=== PATIENT | male | born 1965 | race Caucasian/White ===

== ENCOUNTER 2023-01-31 23:41 | Emergency (ER) | payer SELFPAY ==
[2023-02-01] MEDS ORDERED: Lidocaine Viscous Sol 2% 15 ml UD Cup ONE (00:14)
[2023-02-01] MEDS ORDERED: Mag-Al 1200 mg/1200 mg/30 ML UDCUP ONE (00:14)
[2023-02-01] MEDS ORDERED: Ondansetron PF 4 MG/2 ML Vial ONE (01:11)
[2023-02-01 01:58] LABS: #Eosinphils 0.1 thou/uL (0.0-0.7); #Lymphocytes 1.3 thou/uL (1.20-3.40); #Monocytes 0.9 thou/uL (0.11-0.59); #Neutrophils 11.6 thou/uL (1.40-6.50); %Basophils 0.2 % (0.0-1.0); %Eosinophils 0.9 % (0.0-10.0); %Lymphocytes 9.4 % (21.0-51.0); %Monocytes 6.2 % (0.0-10.0); %Neutrophils 83.3 % (42.0-75.0); Hemoglobin 17.5 g/dL (14.0-18.0); Mean Corpuscular HGB CONC 34.1 g/dL (32.0-36.0); Mean Corpuscular Hemoglobin 30.8 pg (27.0-31.0); Mean Corpuscular Volume 90.1 fl (78.0-98.0); Platelet Count 78 10x3/uL (130-400); Platelet Morphology Comment Appears Decreased; RBC Distribution Width 13.3 % (11.5-14.5); RBC Morphology Normal; Red Blood Cell (RBC) Count 5.69 mill/uL (4.70-6.10); White Blood Cell (WBC) Count 13.9 10x3/uL (4.8-10.8)
[2023-02-01 03:07] LABS: ALT (SGPT) 27 U/L (8-55); AST (SGOT) 21 U/L (5-34); Albumin 3.7 g/dL (3.5-5.0); Alkaline Phosphatase 70 U/L (40-110); Anion Gap 13 mmol/L (10-20); BUN (Urea Nitrogen) 20 mg/dL (8.4-25.7); Bilirubin, Total 1.4 mg/dL (0.2-1.2); Calc. Creatinine Clearance 0 mL/min (70-130); Calcium 8.9 mg/dL (7.8-10.44); Carbon Dioxide 21 mmol/L (22-29); Chloride 104 mmol/L (98-107); Estimated GFR 79; Globulin 2.3 g/dL (2.4-3.5); Glucose 185 mg/dL (70-105); Lipase 4 U/L (8-78); Potassium 4.2 mmol/L (3.5-5.1); Sodium 134 mmol/L (136-145)
== END 2023-02-01 04:16 | disposition home or self-care (01) ==
LOC: ERS 23:41
DX: K80.20 Calculus of gallbladder without cholecystitis without obstruction (principal); E11.9 Type 2 diabetes mellitus without complications; I11.0 Hypertensive heart disease with heart failure; I50.9 Heart failure, unspecified; J43.9 Emphysema, unspecified
CPT/HCPCS: 36415; 71045; 76705; 80053; 83690; 83880; 84484; 85025; 93005; 96361; 96374; J2405

== ENCOUNTER 2023-05-24 03:05 | Inpatient (IN) | payer OTHER, SELFPAY ==
[2023-05-24 04:11] LABS: #Eosinphils 0.3 thou/uL (0.0-0.7); #Monocytes 0.8 thou/uL (0.11-0.59); #Neutrophils 9.5 thou/uL (1.40-6.50); %Basophils 0.3 % (0.0-1.0); %Eosinophils 2.6 % (0.0-10.0); %Lymphocytes 13.3 % (21.0-51.0); %Monocytes 6.2 % (0.0-10.0); %Neutrophils 77.3 % (42.0-75.0); Hematocrit 42.4 % (42.0-52.0); Hemoglobin 14.3 g/dL (14.0-18.0); Mean Corpuscular HGB CONC 33.7 g/dL (32.0-36.0); Mean Corpuscular Hemoglobin 30.9 pg (27.0-31.0); Mean Corpuscular Volume 91.6 fl (78.0-98.0); Mean Platelet Volume 11.7 fL (7.4-10.4); Platelet Count 142 10x3/uL (130-400); RBC Distribution Width 13.9 % (11.5-14.5); Red Blood Cell (RBC) Count 4.63 mill/uL (4.70-6.10); White Blood Cell (WBC) Count 12.3 10x3/uL (4.8-10.8)
[2023-05-24 04:36] LABS: ALT (SGPT) 14 U/L (8-55); AST (SGOT) 20 U/L (5-34); Albumin 3.7 g/dL (3.5-5.0); Alkaline Phosphatase 68 U/L (40-110); Anion Gap 15 mmol/L (10-20); BUN (Urea Nitrogen) 18 mg/dL (8.4-25.7); Bilirubin, Total 1.8 mg/dL (0.2-1.2); Calc. Creatinine Clearance 0 mL/min (70-130); Calcium 8.8 mg/dL (7.8-10.44); Carbon Dioxide 22 mmol/L (22-29); Chloride 96 mmol/L (98-107); Estimated GFR 75; Globulin 3.1 g/dL (2.4-3.5); Glucose 235 mg/dL (70-105); Lipase Less than 4 U/L (8-78); Potassium 2.9 mmol/L (3.5-5.1); Protein, Total 6.8 g/dL (6.0-8.3); Sodium 130 mmol/L (136-145)
[2023-05-24 04:38] LABS: Troponin I 0.037 ng/mL (< 0.028)
[2023-05-24] MEDS ORDERED: Furosemide 40 MG/4 ML VIAL ONE (04:52)
[2023-05-24] MEDS ORDERED: Pot Chloride/Pot Bicarb/Cit Ac 25 mEq Effervescent Tablet ONE (04:52)
[2023-05-24] MEDS ORDERED: Potassium Chloride 20 MEQ TAB ONE (05:19)
[2023-05-24] MEDS ORDERED: fentaNYL 50 mcg/mL 1 mL Vial ONE (06:48)
[2023-05-24 07:41] LABS: Troponin I 0.038 ng/mL (< 0.028)
[2023-05-24] MEDS ORDERED: Guaifenesin DM 100-10/5 ML UDCUP PO PRN (07:45)
[2023-05-24] MEDS ORDERED: Acetaminophen 325 MG TAB PO PRN (07:45)
[2023-05-24] MEDS ORDERED: Morphine 4 MG/ML VIAL SLOW IVP PRN (07:53)
[2023-05-24] MEDS ORDERED: Glucagon 1 MG/ML KIT IM PRN (07:55)
[2023-05-24] MEDS ORDERED: Dextrose 50% Abboject 50 ML SYRINGE SLOW IVP PRN (07:55)
[2023-05-24] MEDS ORDERED: Dextrose 5% in Water 1,000 ML IV PRN (07:55)
[2023-05-24] MEDS ORDERED: HumaLOG 300 UNITS/3 ML VIAL SC PRN (07:55)
[2023-05-24] MEDS ORDERED: Famotidine/PF 20 mg/2ml Vial SLOW IVP SCH (08:15)
[2023-05-24] MEDS ORDERED: diphenhydrAMINE 50 MG/ML VIAL IVP SCH (08:15)
[2023-05-24] MEDS ORDERED: methylPREDNISolone Sod Succ 40 MG VIAL IVP SCH (08:15)
[2023-05-24] MEDS ORDERED: Iopamidol-370 76% 500 ML MDV (1 ML CHARGE) ONE (09:34)
[2023-05-24] MEDS: Famotidine 20 MG TAB PO SCH ×2 (09:52→20:16)
[2023-05-24 10:12] VITALS: BMI 32.3
[2023-05-24] MEDS: Ipratropium/Albuterol 3 ML NEB NEB SCH ×3 (11:00→19:31)
[2023-05-24] MEDS ORDERED: Potassium Chloride 20 MEQ TAB PO SCH (12:00)
[2023-05-24 12:32] LABS: Legionella Urinary Ag Negative (Negative); Strep pneumo Urine Ag NEGATIVE (NEGATIVE)
[2023-05-24 12:51] LABS: Magnesium 1.3 mg/dL (1.6-2.6)
[2023-05-24 13:43] LABS: Troponin I 0.027 ng/mL (< 0.028)
[2023-05-24] MEDS ORDERED: Magnesium Sulfate 4 GM in Sodium Chloride 0.9% 250 ML 250 ML IVPB SCH (14:15)
[2023-05-24] MEDS ORDERED: Magnesium Sulfate In Water 4 GM in Premix Bag 1 BAG IVPB SCH (14:15)
[2023-05-24] MEDS: Furosemide 40 MG/4 ML VIAL SLOW IVP SCH (14:41)
[2023-05-24] MEDS: HYDROcodone/Acetaminophen 5/325 mg Tablet PO PRN ×2 (14:41→20:15)
[2023-05-24] MEDS: Carvedilol 3.125 MG TAB PO SCH (17:14)
[2023-05-24] MEDS: Potassium Chloride 20 MEQ TAB PO SCH (17:14)
[2023-05-25] MEDS: Furosemide 40 MG/4 ML VIAL SLOW IVP SCH ×2 (05:24→13:32)
[2023-05-25] MEDS: Ketorolac Tromethamine 30 MG/ML VIAL IVP PRN ×2 (05:27→16:04)
[2023-05-25 05:47] LABS: #Eosinphils 0.1 thou/uL (0.0-0.7); #Monocytes 1.2 thou/uL (0.11-0.59); #Neutrophils 12.9 thou/uL (1.40-6.50); %Basophils 0.2 % (0.0-1.0); %Eosinophils 0.3 % (0.0-10.0); %Lymphocytes 9.9 % (21.0-51.0); %Monocytes 7.3 % (0.0-10.0); %Neutrophils 81.8 % (42.0-75.0); Hematocrit 44.4 % (42.0-52.0); Hemoglobin 14.5 g/dL (14.0-18.0); Mean Corpuscular HGB CONC 32.7 g/dL (32.0-36.0); Mean Corpuscular Hemoglobin 30.7 pg (27.0-31.0); Mean Corpuscular Volume 93.9 fl (78.0-98.0); Mean Platelet Volume 12.8 fL (7.4-10.4); Platelet Count 153 10x3/uL (130-400); Red Blood Cell (RBC) Count 4.73 mill/uL (4.70-6.10); White Blood Cell (WBC) Count 15.7 10x3/uL (4.8-10.8)
[2023-05-25 07:12] LABS: ALT (SGPT) 15 U/L (8-55); AST (SGOT) 22 U/L (5-34); Alkaline Phosphatase 77 U/L (40-110); BUN (Urea Nitrogen) 26 mg/dL (8.4-25.7); Bilirubin, Total 2.6 mg/dL (0.2-1.2); Calc. Creatinine Clearance 92 mL/min (70-130); Calcium 9.1 mg/dL (7.8-10.44); Chloride 97 mmol/L (98-107); Estimated GFR 63; Potassium 3.8 mmol/L (3.5-5.1); Sodium 130 mmol/L (136-145)
[2023-05-25] MEDS: Ipratropium/Albuterol 3 ML NEB NEB SCH ×4 (07:27→19:20)
[2023-05-25] MEDS: Carvedilol 3.125 MG TAB PO SCH ×2 (07:54→16:05)
[2023-05-25] MEDS: Famotidine 20 MG TAB PO SCH ×2 (07:54→19:46)
[2023-05-25] MEDS: Nicotine 21 MG PATCH TD SCH (07:54)
[2023-05-25] MEDS: Potassium Chloride 20 MEQ TAB PO SCH ×2 (07:55→16:05)
[2023-05-25 08:33] LABS: Glucose 216 mg/dL (70-105)
[2023-05-25 08:34] LABS: Globulin 3.5 g/dL (2.4-3.5); Protein, Total 7.5 g/dL (6.0-8.3)
[2023-05-25 08:35] LABS: Anion Gap 24 mmol/L (10-20); Carbon Dioxide 14 mmol/L (22-29)
[2023-05-25] MEDS: HYDROcodone/Acetaminophen 5/325 mg Tablet PO PRN (19:45)
[2023-05-26] MEDS: Ketorolac Tromethamine 30 MG/ML VIAL IVP PRN (00:20)
[2023-05-26] MEDS: HYDROcodone/Acetaminophen 5/325 mg Tablet PO PRN ×5 (03:33→22:14)
[2023-05-26] MEDS: Furosemide 40 MG/4 ML VIAL SLOW IVP SCH ×2 (05:48→13:20)
[2023-05-26] MEDS: Ipratropium/Albuterol 3 ML NEB NEB SCH ×2 (07:19→10:47)
[2023-05-26] MEDS: Nicotine 21 MG PATCH TD SCH (08:35)
[2023-05-26] MEDS: Potassium Chloride 20 MEQ TAB PO SCH ×2 (08:35→16:51)
[2023-05-26] MEDS: Carvedilol 3.125 MG TAB PO SCH ×2 (08:35→16:51)
[2023-05-26] MEDS: Famotidine 20 MG TAB PO SCH ×2 (08:35→20:45)
[2023-05-26] MEDS ORDERED: Ipratropium/Albuterol 3 ML NEB NEB PRN (13:22)
[2023-05-26] MEDS ORDERED: Communication Order-Pharmacy FS SCH ×2 (18:00→19:30)
[2023-05-27] MEDS: HYDROcodone/Acetaminophen 5/325 mg Tablet PO PRN (02:03)
[2023-05-27 04:55] LABS: #Basophils 0.1 thou/uL (0.0-0.2); #Eosinphils 0.3 thou/uL (0.0-0.7); #Monocytes 0.7 thou/uL (0.11-0.59); #Neutrophils 8.1 thou/uL (1.40-6.50); %Basophils 0.5 % (0.0-1.0); %Lymphocytes 11.9 % (21.0-51.0); %Monocytes 7.1 % (0.0-10.0); Hematocrit 40.2 % (42.0-52.0); Hemoglobin 13.6 g/dL (14.0-18.0); Mean Corpuscular HGB CONC 33.8 g/dL (32.0-36.0); Mean Corpuscular Hemoglobin 30.5 pg (27.0-31.0); Mean Corpuscular Volume 90.1 fl (78.0-98.0); Mean Platelet Volume 12.6 fL (7.4-10.4); Platelet Count 152 10x3/uL (130-400); RBC Distribution Width 13.6 % (11.5-14.5); Red Blood Cell (RBC) Count 4.46 mill/uL (4.70-6.10); White Blood Cell (WBC) Count 10.5 10x3/uL (4.8-10.8)
[2023-05-27 05:04] LABS: Hemoglobin A1c 6.9 % (4.0-6.0)
[2023-05-27 05:19] LABS: Anion Gap 15 mmol/L (10-20); BUN (Urea Nitrogen) 46 mg/dL (8.4-25.7); Calc. Creatinine Clearance 75 mL/min (70-130); Calcium 9.1 mg/dL (7.8-10.44); Carbon Dioxide 20 mmol/L (22-29); Cardiac Risk 3.5 (Less than 4.5); Chloride 100 mmol/L (98-107); Cholesterol 102 mg/dl (< 200 Desired); Estimated GFR 48; Glucose 139 mg/dL (70-105); HDL Cholesterol 29 mg/dL (>60 Neg Risk); LDL Cholesterol, Calculated 63 mg/dL; Potassium 4.3 mmol/L (3.5-5.1); Sodium 131 mmol/L (136-145); Triglycerides 50 mg/dL (Less than 150)
[2023-05-27] MEDS ORDERED: Ondansetron PF 4 MG/2 ML Vial IVP PRN (05:21)
[2023-05-27] MEDS ORDERED: Ondansetron PF 4 MG/2 ML Vial IVP SCH (05:30)
[2023-05-27] MEDS: Famotidine 20 MG TAB PO SCH (06:03)
[2023-05-27] MEDS: Furosemide 40 MG/4 ML VIAL SLOW IVP SCH (06:04)
[2023-05-27] MEDS: Potassium Chloride 20 MEQ TAB PO SCH (06:04)
[2023-05-27] MEDS: Carvedilol 3.125 MG TAB PO SCH ×2 (06:04→16:35)
[2023-05-27 06:36] LABS: SARS-CoV-2 NAA Rapid Test Not Detected (NotDetected)
[2023-05-27] MEDS ORDERED: methylPREDNISolone Sod Succ/PF 125 MG/2 ML VIAL IVP PRN (08:00)
[2023-05-27] MEDS ORDERED: Promethazine 25 MG TAB PO SCH (08:00)
[2023-05-27] MEDS ORDERED: Famotidine/PF 20 mg/2ml Vial SLOW IVP SCH ×2 (08:00→13:00)
[2023-05-27] MEDS ORDERED: diphenhydrAMINE 50 MG CAP PO SCH ×2 (08:00→13:00)
[2023-05-27] MEDS ORDERED: Sodium Chloride 0.9% 1,000 ML IV SCH (08:45)
[2023-05-27] MEDS ORDERED: Sodium Chloride 0.9% 500 ML IV SCH (08:45)
[2023-05-27] MEDS ORDERED: Midazolam HCl 2 mg/2 ml Vial ONE (11:59)
[2023-05-27] MEDS ORDERED: Lidocaine 1% (PF) 30 ML VIAL ONE (12:00)
[2023-05-27] MEDS ORDERED: Heparin 10,000 UNITS/ 10 ML VIAL ONE (12:00)
[2023-05-27] MEDS ORDERED: fentaNYL 50 mcg/mL 1 mL Vial ONE (12:00)
[2023-05-27 13:41] LABS: Bilirubin Negative (Negative); Blood, Urine Trace (Negative); Clarity Clear (Clear); Glucose, Urine (Dipstick) Normal (Negative); Ketone, Urine Trace mg/dL (Negative); Leukocyte Negative Leu/uL (Negative); Nitrite Negative (Negative); Protein, Urine (Dipstick) 50 mg/dL (Neg-Trace); RBC/HPF 0-3 HPF (0-3); Specific Gravity, Urine 1.024 (1.002-1.036); Squamous Epithelial None Seen HPF (0-3); Urobilinogen 3 mg/dL (Less than 2); WBC/HPF 0-3 HPF (0-3); pH, Urine 5.5 (5.0-9.0)
[2023-05-27 13:59] LABS: Bacteria/HPF None Seen HPF (None Seen)
[2023-05-27] MEDS ORDERED: hydrALAZINE 20 MG/ML VIAL ONE (14:11)
[2023-05-27] MEDS ORDERED: Sodium Chloride 0.9% 200 ML IV PRN (15:30)
[2023-05-27] MEDS ORDERED: Nitroglycerin 0.4 MG TAB (25 Tab Bottle) SL PRN (15:30)
[2023-05-27] MEDS ORDERED: Acetaminophen/Codeine 30-300mg Tablet PO PRN ×2 (15:30)
[2023-05-27 16:03] VITALS: BP 164/91; TEMP 98
[2023-05-27] MEDS ORDERED: Lorazepam 2 MG/ML VIAL SLOW IVP PRN (16:22)
[2023-05-27] MEDS: Nicotine 21 MG PATCH TD SCH (16:35)
== END 2023-05-27 18:20 | disposition left against medical advice (07) | DRG 280 ==
LOC: ERS 03:05 → 2SW 07:50 → OBSVTOIN 07:50 → 2SW 14:24
PROVIDERS: ADMIT Hospitalist; ATTEND Family Medicine
PROC: 4A023N7 Measurement of Cardiac Sampling and Pressure, Left Heart, Percutaneous Approach (ICD-10-PCS; principal; 2023-05-27)
PROC: B2111ZZ Fluoroscopy of Multiple Coronary Arteries using Low Osmolar Contrast (ICD-10-PCS; 2023-05-27)
PROC: B2151ZZ Fluoroscopy of Left Heart using Low Osmolar Contrast (ICD-10-PCS; 2023-05-27)
DX: I50.43 Acute on chronic combined systolic (congestive) and diastolic (congestive) heart failure (principal); J96.01 Acute respiratory failure with hypoxia; I21.A1 Myocardial infarction type 2; E87.1 Hypo-osmolality and hyponatremia; N17.9 Acute kidney failure, unspecified; I42.9 Cardiomyopathy, unspecified; Q24.0 Dextrocardia; E87.6 Hypokalemia; E11.65 Type 2 diabetes mellitus with hyperglycemia; F17.210 Nicotine dependence, cigarettes, uncomplicated; J43.9 Emphysema, unspecified; N18.9 Chronic kidney disease, unspecified; D72.829 Elevated white blood cell count, unspecified; I25.10 Atherosclerotic heart disease of native coronary artery without angina pectoris; K80.20 Calculus of gallbladder without cholecystitis without obstruction; I08.1 Rheumatic disorders of both mitral and tricuspid valves; Z20.822 Contact with and (suspected) exposure to COVID-19; I10 Essential (primary) hypertension; Z88.8 Allergy status to other drugs, medicaments and biological substances
CPT/HCPCS: 36415; 36416; 71045; 71275; 76705; 76770; 80048; 80053; 80061; 81001; 83036; 83690; 83735; 83880; 84145; 84443; 84484; 85025; 85379; 86140; 87040; 87149; 87449; 87899; 93005; 93306; 93798; 93970; 94640; 94760; 96374; 96375; 97139; C1725; J0360; J1200; J1644; J1650; J1815; J1885; J1940; J2001; J2060; J2250; J2270; J2405; J2920; J2930; J3010; J3475; J7030; J7050; J7620; Q9967; S0028; U0002

== ENCOUNTER 2023-05-28 13:00 | Inpatient (IN) | payer OTHER ==
[~2023-05-28 13:00] MED LIST: Iopamidol 370 76% 100 ML VIAL ONE
[2023-05-28 14:04] LABS: #Monocytes 0.9 thou/uL (0.11-0.59); #Neutrophils 9.5 thou/uL (1.40-6.50); %Basophils 0.1 % (0.0-1.0); %Eosinophils 0.1 % (0.0-10.0); %Lymphocytes 7.1 % (21.0-51.0); %Monocytes 7.9 % (0.0-10.0); %Neutrophils 84.3 % (42.0-75.0); Hematocrit 39.9 % (42.0-52.0); Hemoglobin 12.6 g/dL (14.0-18.0); Mean Corpuscular HGB CONC 31.6 g/dL (32.0-36.0); Mean Corpuscular Hemoglobin 30.4 pg (27.0-31.0); Mean Corpuscular Volume 96.1 fl (78.0-98.0); Platelet Count 131 10x3/uL (130-400); RBC Distribution Width 14.1 % (11.5-14.5); Red Blood Cell (RBC) Count 4.15 mill/uL (4.70-6.10); White Blood Cell (WBC) Count 11.2 10x3/uL (4.8-10.8)
[2023-05-28 14:28] LABS: ALT (SGPT) 380 U/L (8-55); AST (SGOT) 218 U/L (5-34); Albumin 3.9 g/dL (3.5-5.0); Alkaline Phosphatase 77 U/L (40-110); Anion Gap 19 mmol/L (10-20); BUN (Urea Nitrogen) 44 mg/dL (8.4-25.7); Bilirubin, Total 1.5 mg/dL (0.2-1.2); Calc. Creatinine Clearance 0 mL/min (70-130); Calcium 9.7 mg/dL (7.8-10.44); Carbon Dioxide 18 mmol/L (22-29); Chloride 99 mmol/L (98-107); Estimated GFR 48; Globulin 3.6 g/dL (2.4-3.5); Glucose 288 mg/dL (70-105); Potassium 5.5 mmol/L (3.5-5.1); Protein, Total 7.5 g/dL (6.0-8.3); Sodium 130 mmol/L (136-145)
[2023-05-28 14:41] LABS: Troponin I 0.023 ng/mL (< 0.028)
[2023-05-28] MEDS ORDERED: Ondansetron PF 4 MG/2 ML Vial IVP PRN (17:15)
[2023-05-28] MEDS ORDERED: Ondansetron ODT 4 MG TAB SL PRN (17:15)
[2023-05-28] MEDS ORDERED: Acetaminophen 325 MG TAB PO PRN (17:15)
[2023-05-28 17:47] VITALS: BMI 32.6
[2023-05-28] MEDS ORDERED: hydrALAZINE 20 MG/ML VIAL SLOW IVP PRN (17:52)
[2023-05-28] MEDS ORDERED: Metoclopramide HCl 10 MG/2 ML VIAL IVP PRN (17:52)
[2023-05-28] MEDS ORDERED: Ipratropium/Albuterol 3 ML NEB NEB PRN (17:56)
[2023-05-28] MEDS ORDERED: Dextrose 50% Abboject 50 ML SYRINGE SLOW IVP PRN (18:06)
[2023-05-28] MEDS ORDERED: Glucagon 1 MG/ML KIT IM PRN (18:06)
[2023-05-28] MEDS ORDERED: Dextrose 5% in Water 1,000 ML IV PRN (18:06)
[2023-05-28] MEDS ORDERED: LOKELMA 10 GM PACKET PO SCH (18:15)
[2023-05-28] MEDS ORDERED: Furosemide 20 MG/2 ML VIAL SLOW IVP SCH (18:15)
[2023-05-28] MEDS: HumaLOG 300 UNITS/3 ML VIAL SC PRN ×2 (18:56→19:01)
[2023-05-28] MEDS: Nicotine 14 MG PATCH TD SCH (18:56)
[2023-05-28 19:10] LABS: Troponin I 0.027 ng/mL (< 0.028)
[2023-05-28 20:29] LABS: Bacteria/HPF None Seen HPF (None Seen); Bilirubin Negative (Negative); Blood, Urine Negative (Negative); Clarity Clear (Clear); Glucose, Urine (Dipstick) 150 mg/dL (Negative); Ketone, Urine Negative (Negative); Leukocyte Negative Leu/uL (Negative); Nitrite Negative (Negative); Protein, Urine (Dipstick) 30 mg/dL (Neg-Trace); RBC/HPF 0-3 HPF (0-3); Specific Gravity, Urine 1.023 (1.002-1.036); Squamous Epithelial None Seen HPF (0-3); WBC/HPF 0-3 HPF (0-3); pH, Urine 5.5 (5.0-9.0)
[2023-05-28 20:36] LABS: Amphetamine Detected (NotDetected); Barbiturates Screen Not Detected (NotDetected); Benzodiazepine Screen Not Detected (NotDetected); Cocaine Metabolite Screen Not Detected (NotDetected); Methadone Not Detected (NotDetected); Methamphetamine Detected (NotDetected); Opiate Screen Detected (NotDetected); Oxycodone Screen Not Detected (NotDetected); Phencyclidine (PCP) Not Detected (NotDetected); THC/Cannabinoid Screen Not Detected (NotDetected); Tricyclic Screen Not Detected (NotDetected)
[2023-05-28 21:20] LABS: Troponin I 0.049 ng/mL (< 0.028)
[2023-05-28] MEDS ORDERED: Famotidine 20 MG TAB PO SCH (23:45)
[2023-05-29 05:44] LABS: #Eosinphils 0.3 thou/uL (0.0-0.7); #Neutrophils 9.8 thou/uL (1.40-6.50); %Basophils 0.2 % (0.0-1.0); %Eosinophils 2.2 % (0.0-10.0); %Lymphocytes 11.3 % (21.0-51.0); %Monocytes 7.6 % (0.0-10.0); %Neutrophils 77.7 % (42.0-75.0); Hematocrit 40.6 % (42.0-52.0); Hemoglobin 13.3 g/dL (14.0-18.0); Mean Corpuscular HGB CONC 32.8 g/dL (32.0-36.0); Mean Corpuscular Hemoglobin 30.6 pg (27.0-31.0); Mean Corpuscular Volume 93.5 fl (78.0-98.0); Mean Platelet Volume 12.9 fL (7.4-10.4); Platelet Count 188 10x3/uL (130-400); RBC Distribution Width 13.8 % (11.5-14.5); Red Blood Cell (RBC) Count 4.34 mill/uL (4.70-6.10); White Blood Cell (WBC) Count 12.5 10x3/uL (4.8-10.8)
[2023-05-29] MEDS: HumaLOG 300 UNITS/3 ML VIAL SC PRN ×3 (05:51→20:32)
[2023-05-29 06:09] LABS: ALT (SGPT) 302 U/L (8-55); AST (SGOT) 107 U/L (5-34); Albumin 3.7 g/dL (3.5-5.0); Alkaline Phosphatase 88 U/L (40-110); Anion Gap 16 mmol/L (10-20); BUN (Urea Nitrogen) 40 mg/dL (8.4-25.7); Bilirubin, Direct 0.8 mg/dL (0.1-0.3); Bilirubin, Total 1.2 mg/dL (0.2-1.2); Calc. Creatinine Clearance 96 mL/min (70-130); Carbon Dioxide 20 mmol/L (22-29); Chloride 100 mmol/L (98-107); Estimated GFR 64; Glucose 196 mg/dL (70-105); Potassium 3.9 mmol/L (3.5-5.1); Protein, Total 6.9 g/dL (6.0-8.3); Sodium 132 mmol/L (136-145)
[2023-05-29] MEDS: Acetaminophen 325 MG TAB PO PRN (06:35)
[2023-05-29] MEDS: Aspirin Chewable 81 MG TAB PO SCH (09:27)
[2023-05-29] MEDS ORDERED: Lisinopril 5 MG TAB PO SCH (11:15)
[2023-05-29] MEDS ORDERED: Pantoprazole 40 MG VIAL IVP SCH (11:30)
[2023-05-29] MEDS: Loperamide HCl 2 MG CAP PO PRN (14:10)
[2023-05-29] MEDS: Nicotine 14 MG PATCH TD SCH (17:03)
[2023-05-29] MEDS: Carvedilol 3.125 MG TAB PO SCH (17:03)
[2023-05-29] MEDS: Atorvastatin Calcium 40 MG TAB PO SCH (20:30)
[2023-05-29] MEDS: Lisinopril 5 MG TAB PO SCH (20:31)
[2023-05-30] MEDS: Loperamide HCl 2 MG CAP PO PRN ×2 (04:04→08:57)
[2023-05-30] MEDS: Lorazepam 2 MG/ML VIAL SLOW IVP PRN ×2 (06:52→22:52)
[2023-05-30] MEDS: Lisinopril 5 MG TAB PO SCH ×2 (08:57→21:05)
[2023-05-30] MEDS: Aspirin Chewable 81 MG TAB PO SCH (08:57)
[2023-05-30] MEDS: Carvedilol 3.125 MG TAB PO SCH ×2 (08:57→16:39)
[2023-05-30] MEDS ORDERED: Diphenoxylate HCl/Atropine Tablet PO PRN (11:06)
[2023-05-30 12:39] LABS: #Eosinphils 0.2 thou/uL (0.0-0.7); #Monocytes 1.9 thou/uL (0.11-0.59); %Basophils 0.2 % (0.0-1.0); %Eosinophils 0.9 % (0.0-10.0); %Lymphocytes 4.9 % (21.0-51.0); %Monocytes 10.3 % (0.0-10.0); %Neutrophils 82.6 % (42.0-75.0); Hematocrit 41.5 % (42.0-52.0); Hemoglobin 13.7 g/dL (14.0-18.0); Mean Corpuscular Hemoglobin 30.2 pg (27.0-31.0); Mean Corpuscular Volume 91.6 fl (78.0-98.0); Platelet Count 172 10x3/uL (130-400); RBC Distribution Width 14.1 % (11.5-14.5); Red Blood Cell (RBC) Count 4.53 mill/uL (4.70-6.10); White Blood Cell (WBC) Count 18.1 10x3/uL (4.8-10.8)
[2023-05-30 13:24] LABS: ALT (SGPT) 264 U/L (8-55); AST (SGOT) 146 U/L (5-34); Albumin 3.4 g/dL (3.5-5.0); Alkaline Phosphatase 72 U/L (40-110); Anion Gap 12 mmol/L (10-20); BUN (Urea Nitrogen) 24 mg/dL (8.4-25.7); Bilirubin, Total 1.9 mg/dL (0.2-1.2); Calc. Creatinine Clearance 105 mL/min (70-130); Calcium 8.6 mg/dL (7.8-10.44); Carbon Dioxide 18 mmol/L (22-29); Chloride 103 mmol/L (98-107); Estimated GFR 70; Globulin 2.8 g/dL (2.4-3.5); Glucose 165 mg/dL (70-105); Protein, Total 6.2 g/dL (6.0-8.3); Sodium 129 mmol/L (136-145)
[2023-05-30] MEDS ORDERED: Ondansetron PF 4 MG/2 ML Vial IVP PRN (13:32)
[2023-05-30] MEDS ORDERED: Piperacillin/Tazobactam 3.375 GM in Sodium Chloride 0.9% 100 ML IVPB SCH (15:00)
[2023-05-30 16:09] LABS: HBCM Index 0.05 S/CO (0-0.79); HIV (1/2) Antibody/Antigen Non-Reactive (NonReactive); Hep A IgM AB Non-Reactive S/CO (NonReactive); Hep A IgM S/CO 0.19 S/CO (0-0.79); Hep B Surf Ag Non-Reactive S/CO (NonReactive); Hepatitis B Core IgM Abs Non-Reactive S/CO (NonReactive)
[2023-05-30] MEDS: Nicotine 14 MG PATCH TD SCH (16:56)
[2023-05-30 17:18] LABS: Hep C IgG Ab Reflex HepC Qnt S/CO (NonReactive); Hep C Index 13.93 S/CO (0-0.79)
[2023-05-30] MEDS ORDERED: Dicyclomine 10 MG CAP PO SCH (20:15)
[2023-05-30] MEDS: Piperacillin/Tazobactam 3.375 GM in Sodium Chloride 0.9% 100 ML IVPB SCH (21:05)
[2023-05-30] MEDS: Atorvastatin Calcium 40 MG TAB PO SCH (21:06)
[2023-05-30 21:18] LABS: Campy jejuni + coli by PCR Negative (Negative); STEC Shiga Toxin 1+2 Negative (Negative); Salmonella spp. by PCR Negative (Negative); Shigella spp + EIEC by PCR Negative (Negative)
[2023-05-31] MEDS ORDERED: Ondansetron ODT 4 MG TAB PO PRN (03:59)
[2023-05-31] MEDS ORDERED: Electrolyte Replacement Protocol 1 EACH FS SCH (04:00)
[2023-05-31] MEDS: Piperacillin/Tazobactam 3.375 GM in Sodium Chloride 0.9% 100 ML IVPB SCH ×3 (04:06→20:41)
[2023-05-31] MEDS ORDERED: Lorazepam 2 MG/ML VIAL SLOW IVP SCH (04:45)
[2023-05-31 04:49] LABS: #Eosinphils 0.1 thou/uL (0.0-0.7); #Monocytes 1.5 thou/uL (0.11-0.59); #Neutrophils 17.1 thou/uL (1.40-6.50); %Basophils 0.2 % (0.0-1.0); %Eosinophils 0.6 % (0.0-10.0); %Monocytes 7.6 % (0.0-10.0); %Neutrophils 85.6 % (42.0-75.0); Hematocrit 40.7 % (42.0-52.0); Hemoglobin 13.5 g/dL (14.0-18.0); Mean Corpuscular HGB CONC 33.2 g/dL (32.0-36.0); Mean Corpuscular Volume 90.4 fl (78.0-98.0); Mean Platelet Volume 12.2 fL (7.4-10.4); Platelet Count 181 10x3/uL (130-400); RBC Distribution Width 14.4 % (11.5-14.5); White Blood Cell (WBC) Count 19.9 10x3/uL (4.8-10.8)
[2023-05-31] MEDS: Thiamine HCl 200 MG/2 ML VIAL SLOW IVP SCH (05:08)
[2023-05-31 05:13] LABS: Bilirubin, Direct 1.8 mg/dL (0.1-0.3); Phosphorus 2.2 mg/dL (2.3-4.7)
[2023-05-31 05:17] LABS: ALT (SGPT) 187 U/L (8-55); AST (SGOT) 59 U/L (5-34); Albumin 3.6 g/dL (3.5-5.0); Alkaline Phosphatase 68 U/L (40-110); Anion Gap 16 mmol/L (10-20); BUN (Urea Nitrogen) 22 mg/dL (8.4-25.7); Bilirubin, Total 3.2 mg/dL (0.2-1.2); Calc. Creatinine Clearance 82 mL/min (70-130); Calcium 8.6 mg/dL (7.8-10.44); Carbon Dioxide 16 mmol/L (22-29); Chloride 99 mmol/L (98-107); Estimated GFR 54; Globulin 3.1 g/dL (2.4-3.5); Glucose 174 mg/dL (70-105); Magnesium 1.3 mg/dL (1.6-2.6); Potassium 4.8 mmol/L (3.5-5.1); Protein, Total 6.7 g/dL (6.0-8.3); Sodium 126 mmol/L (136-145)
[2023-05-31] MEDS ORDERED: Magnesium Sulfate In Water 4 GM in Premix Bag 1 BAG IVPB SCH (08:00)
[2023-05-31] MEDS ORDERED: Magnesium 2 GM/50 ML(in water) 2 GM in Premix Bag 1 BAG IVPB SCH (09:00)
[2023-05-31] MEDS: Folic Acid 1 MG TAB PO SCH (09:08)
[2023-05-31] MEDS: Multivit, Therapeutic 1 TAB PO SCH (09:08)
[2023-05-31] MEDS: Carvedilol 3.125 MG TAB PO SCH ×2 (09:08→17:45)
[2023-05-31] MEDS: Lisinopril 5 MG TAB PO SCH ×2 (09:08→20:59)
[2023-05-31] MEDS: Lorazepam 1 MG TAB PO PRN ×2 (09:08→11:24)
[2023-05-31] MEDS: Aspirin Chewable 81 MG TAB PO SCH (09:08)
[2023-05-31 09:56] LABS: Lactic Acid 2.7 mmol/L (0.5-2.2)
[2023-05-31] MEDS ORDERED: VANCOMYCIN IVPB PRN (11:20)
[2023-05-31 11:40] LABS: Syphilis Antibody Nonreactive (Nonreactive); Syphilis Antibody Index 0.04 S/CO (<1.00 Non-Reactive)
[2023-05-31] MEDS ORDERED: VANCOMYCIN 2 GRAM/500 ML BAG 2 GM in Premix Bag 1 BAG IVPB SCH ×2 (12:00→13:00)
[2023-05-31 13:17] LABS: Lactic Acid 3.9 mmol/L (0.5-2.2)
[2023-05-31 13:59] LABS: Base Excess (BEa) -3.4 mEq/L (-2.0 to +3.0); Calcium, Ionized (arterial) 1.06 mmol/L (1.12-1.30); Carboxyhemoglobin (COHb) 1.2 gm% (0.0-3.0); Hematocrit-ABG 39 % (42.0-52.0); Hemoglobin (Hb) 13.2 g/dL (14.0-18.0); O2 Tension (PaO2), arterial 74.9 mmHg (80.0-100.0); Potassium - ABG Lab 4.48 mmol/L (3.70-5.30); pH, Arterial 7.538 (7.35-7.45)
[2023-05-31 14:00] LABS: CO2 Tension 20.4 mmHg (35.0-45.0)
[2023-05-31 14:01] LABS: Puncture Site LRA
[2023-05-31] MEDS ORDERED: cefTRIAXone\\ROCEPHIN 1 GM in Sodium Chloride 0.9% 100 ML IVPB SCH (16:30)
[2023-05-31] MEDS: Nicotine 14 MG PATCH TD SCH (17:45)
[2023-05-31] MEDS ORDERED: Dexmedetomidine 400 MCG, Admixture Fee 1 EACH in Sodium Chloride 0.9% 96 ML IVPB SCH (18:00)
[2023-05-31] MEDS: Dexmedetomidine 400 MCG, Admixture Fee 1 EACH in Sodium Chloride 0.9% 96 ML IVPB SCH (18:41)
[2023-05-31] MEDS: Lorazepam 2 MG/ML VIAL SLOW IVP PRN (20:41)
[2023-05-31] MEDS: Atorvastatin Calcium 40 MG TAB PO SCH (21:00)
[2023-05-31] MEDS ORDERED: Vancomycin HCl 1 GM in Sodium Chloride 0.9% 250 ML 250 ML IVPB SCH (21:00)
[2023-06-01] MEDS ORDERED: Lorazepam 2 MG/ML VIAL SLOW IVP PRN ×2 (01:30→03:59)
[2023-06-01] MEDS: Piperacillin/Tazobactam 3.375 GM in Sodium Chloride 0.9% 100 ML IVPB SCH ×3 (04:29→20:43)
[2023-06-01] MEDS: Thiamine HCl 200 MG/2 ML VIAL SLOW IVP SCH (04:29)
[2023-06-01] MEDS: Carvedilol 3.125 MG TAB PO SCH ×2 (07:51→19:03)
[2023-06-01] MEDS: Folic Acid 1 MG TAB PO SCH (08:48)
[2023-06-01] MEDS: Aspirin Chewable 81 MG TAB PO SCH (08:48)
[2023-06-01] MEDS: Lisinopril 5 MG TAB PO SCH ×2 (08:49→20:43)
[2023-06-01] MEDS: Multivit, Therapeutic 1 TAB PO SCH (08:49)
[2023-06-01] MEDS ORDERED: VANCOMYCIN 2 GRAM/500 ML BAG 2 GM in Premix Bag 1 BAG IVPB SCH (09:00)
[2023-06-01] MEDS ORDERED: Vancomycin 1 GM in Premix Bag 1 BAG IVPB SCH (09:00)
[2023-06-01 10:15] LABS: #Eosinphils 0.3 thou/uL (0.0-0.7); #Monocytes 2.2 thou/uL (0.11-0.59); #Neutrophils 10.4 thou/uL (1.40-6.50); %Basophils 0.3 % (0.0-1.0); %Eosinophils 1.7 % (0.0-10.0); %Lymphocytes 10.5 % (21.0-51.0); %Monocytes 14.9 % (0.0-10.0); %Neutrophils 72.1 % (42.0-75.0); Hematocrit 45.8 % (42.0-52.0); Hemoglobin 14.3 g/dL (14.0-18.0); Mean Corpuscular HGB CONC 31.2 g/dL (32.0-36.0); Mean Corpuscular Hemoglobin 30.1 pg (27.0-31.0); Mean Corpuscular Volume 96.4 fl (78.0-98.0); Mean Platelet Volume 12.3 fL (7.4-10.4); Platelet Count 122 10x3/uL (130-400); RBC Distribution Width 14.6 % (11.5-14.5); Red Blood Cell (RBC) Count 4.75 mill/uL (4.70-6.10); White Blood Cell (WBC) Count 14.4 10x3/uL (4.8-10.8)
[2023-06-01 10:55] LABS: AST (SGOT) 57 U/L (5-34); Albumin 2.8 g/dL (3.5-5.0); Anion Gap 17 mmol/L (10-20); BUN (Urea Nitrogen) 30 mg/dL (8.4-25.7); Bilirubin, Total 5.4 mg/dL (0.2-1.2); Calc. Creatinine Clearance 71 mL/min (70-130); Calcium 8.2 mg/dL (7.8-10.44); Carbon Dioxide 15 mmol/L (22-29); Chloride 101 mmol/L (98-107); Estimated GFR 44; Globulin 2.9 g/dL (2.4-3.5); Glucose 146 mg/dL (70-105); Potassium 5.5 mmol/L (3.5-5.1); Protein, Total 5.7 g/dL (6.0-8.3); Sodium 127 mmol/L (136-145)
[2023-06-01 11:08] LABS: Alkaline Phosphatase 56 U/L (40-110)
[2023-06-01 11:10] LABS: ALT (SGPT) 125 U/L (8-55)
[2023-06-01 12:27] LABS: ANA Symphony (Qualitative) Negative (Negative); ANA Symphony (Quantitative) 0.4 Ratio (< 0.7 Negative)
[2023-06-01] MEDS ORDERED: Dextrose 50% Abboject 50 ML SYRINGE SLOW IVP SCH (15:30)
[2023-06-01] MEDS ORDERED: Insulin Regular 300 UNITS/3 ML VIAL IVP SCH (15:30)
[2023-06-01] MEDS ORDERED: LOKELMA 10 GM PACKET PO SCH (15:30)
[2023-06-01] MEDS: Nicotine 14 MG PATCH TD SCH (19:08)
[2023-06-01] MEDS: CEFAZOLIN 2 GM in Sodium Chloride 0.9% 100 ML IVPB SCH (20:36)
[2023-06-01] MEDS: Atorvastatin Calcium 40 MG TAB PO SCH (20:36)
[2023-06-01] MEDS: Lorazepam 2 MG/ML VIAL SLOW IVP PRN (23:54)
[2023-06-02] MEDS ORDERED: Morphine 2 MG/ML VIAL SLOW IVP SCH ×2 (01:00→22:00)
[2023-06-02] MEDS: Thiamine HCl 200 MG/2 ML VIAL SLOW IVP SCH (03:48)
[2023-06-02] MEDS ORDERED: Lorazepam 2 MG/ML VIAL SLOW IVP PRN (03:59)
[2023-06-02] MEDS: CEFAZOLIN 2 GM in Sodium Chloride 0.9% 100 ML IVPB SCH ×3 (05:01→21:22)
[2023-06-02 08:49] LABS: Bacteria/HPF None Seen HPF (None Seen); Bilirubin 1+ (Negative); Blood, Urine Negative (Negative); CAUTI Indications for Culture Fever or rigors; Clarity Clear (Clear); Glucose, Urine (Dipstick) Normal (Negative); Ketone, Urine Trace mg/dL (Negative); Leukocyte Negative Leu/uL (Negative); Nitrite Negative (Negative); Protein, Urine (Dipstick) 30 mg/dL (Neg-Trace); RBC/HPF 0-3 HPF (0-3); Specific Gravity, Urine 1.032 (1.002-1.036); Squamous Epithelial 0-3 HPF (0-3); Urobilinogen Normal mg/dL (Less than 2); WBC/HPF 0-3 HPF (0-3); pH, Urine 5.5 (5.0-9.0)
[2023-06-02 08:51] LABS: Urine Culture Reflex No No
[2023-06-02] MEDS: Aspirin Chewable 81 MG TAB PO SCH (08:54)
[2023-06-02] MEDS: Folic Acid 1 MG TAB PO SCH (08:54)
[2023-06-02] MEDS: Multivit, Therapeutic 1 TAB PO SCH (08:54)
[2023-06-02] MEDS: Dexmedetomidine 400 MCG, Admixture Fee 1 EACH in Sodium Chloride 0.9% 96 ML IVPB SCH (09:04)
[2023-06-02] MEDS: Lisinopril 5 MG TAB PO SCH ×2 (09:35→21:22)
[2023-06-02] MEDS: Carvedilol 3.125 MG TAB PO SCH ×2 (09:36→19:01)
[2023-06-02 10:17] LABS: CMV DNA-PCR Test Negative (Negative)
[2023-06-02] MEDS: Lorazepam 2 MG/ML VIAL SLOW IVP PRN ×2 (13:34→21:21)
[2023-06-02 15:16] LABS: Anion Gap 15 mmol/L (10-20); BUN (Urea Nitrogen) 32 mg/dL (8.4-25.7); Calc. Creatinine Clearance 75 mL/min (70-130); Calcium 8.1 mg/dL (7.8-10.44); Carbon Dioxide 15 mmol/L (22-29); Chloride 98 mmol/L (98-107); Estimated GFR 46; Glucose 217 mg/dL (70-105); Potassium 4.7 mmol/L (3.5-5.1); Sodium 123 mmol/L (136-145)
[2023-06-02 17:12] LABS: HSV 1 - DNA Negative (Negative); HSV 2 - DNA Negative (Negative)
[2023-06-02] MEDS: HumaLOG 300 UNITS/3 ML VIAL SC PRN (21:21)
[2023-06-02] MEDS: Atorvastatin Calcium 40 MG TAB PO SCH (21:25)
[2023-06-02] MEDS ORDERED: Morphine 2 MG/ML VIAL SLOW IVP PRN (21:53)
[2023-06-02] MEDS: Nicotine 14 MG PATCH TD SCH (22:25)
[2023-06-03] MEDS ORDERED: Lorazepam 2 MG/ML VIAL SLOW IVP PRN (03:59)
[2023-06-03] MEDS: CEFAZOLIN 2 GM in Sodium Chloride 0.9% 100 ML IVPB SCH ×3 (06:30→21:04)
[2023-06-03] MEDS: HumaLOG 300 UNITS/3 ML VIAL SC PRN ×2 (07:01→21:19)
[2023-06-03] MEDS: Carvedilol 3.125 MG TAB PO SCH ×2 (08:05→17:27)
[2023-06-03] MEDS: Lisinopril 5 MG TAB PO SCH ×2 (08:05→21:03)
[2023-06-03] MEDS: Aspirin Chewable 81 MG TAB PO SCH (08:05)
[2023-06-03] MEDS ORDERED: Thiamine 100 MG TAB PO SCH (09:00)
[2023-06-03] MEDS: Nicotine 14 MG PATCH TD SCH (17:27)
[2023-06-03 17:36] LABS: Anion Gap 13 mmol/L (10-20); BUN (Urea Nitrogen) 25 mg/dL (8.4-25.7); Calc. Creatinine Clearance 92 mL/min (70-130); Calcium 8.2 mg/dL (7.8-10.44); Carbon Dioxide 18 mmol/L (22-29); Chloride 102 mmol/L (98-107); Estimated GFR 58; Glucose 243 mg/dL (70-105); Potassium 4.3 mmol/L (3.5-5.1); Sodium 129 mmol/L (136-145)
[2023-06-03] MEDS: Atorvastatin Calcium 40 MG TAB PO SCH (21:04)
[2023-06-03 21:12] LABS: Hep C PCR-Quant 380000 IU/mL (.)
[2023-06-04 04:17] LABS: Anion Gap 12 mmol/L (10-20); BUN (Urea Nitrogen) 20 mg/dL (8.4-25.7); Calc. Creatinine Clearance 94 mL/min (70-130); Calcium 8.1 mg/dL (7.8-10.44); Carbon Dioxide 18 mmol/L (22-29); Chloride 102 mmol/L (98-107); Estimated GFR 60; Glucose 203 mg/dL (70-105); Potassium 4.4 mmol/L (3.5-5.1); Sodium 128 mmol/L (136-145)
[2023-06-04] MEDS: Dexmedetomidine 400 MCG, Admixture Fee 1 EACH in Sodium Chloride 0.9% 96 ML IVPB SCH ×2 (05:30→17:10)
[2023-06-04] MEDS: CEFAZOLIN 2 GM in Sodium Chloride 0.9% 100 ML IVPB SCH ×3 (05:30→21:17)
[2023-06-04] MEDS: HumaLOG 300 UNITS/3 ML VIAL SC PRN ×2 (06:19→21:16)
[2023-06-04] MEDS: Carvedilol 3.125 MG TAB PO SCH ×2 (08:48→17:10)
[2023-06-04] MEDS: Lisinopril 5 MG TAB PO SCH ×2 (08:48→21:17)
[2023-06-04] MEDS: Aspirin Chewable 81 MG TAB PO SCH (08:48)
[2023-06-04] MEDS: HYDROcodone/Acetaminophen 5/325 mg Tablet PO PRN ×2 (13:03→21:23)
[2023-06-04] MEDS: Nicotine 14 MG PATCH TD SCH (17:15)
[2023-06-04] MEDS: Atorvastatin Calcium 40 MG TAB PO SCH (21:17)
[2023-06-05] MEDS: CEFAZOLIN 2 GM in Sodium Chloride 0.9% 100 ML IVPB SCH ×3 (05:09→21:01)
[2023-06-05] MEDS: HumaLOG 300 UNITS/3 ML VIAL SC PRN (05:28)
[2023-06-05] MEDS: HYDROcodone/Acetaminophen 5/325 mg Tablet PO PRN ×3 (05:29→19:57)
[2023-06-05 07:25] LABS: Anion Gap 11 mmol/L (10-20); BUN (Urea Nitrogen) 15 mg/dL (8.4-25.7); Calc. Creatinine Clearance 115 mL/min (70-130); Calcium 8.4 mg/dL (7.8-10.44); Carbon Dioxide 21 mmol/L (22-29); Chloride 104 mmol/L (98-107); Estimated GFR 78; Glucose 162 mg/dL (70-105); Potassium 3.9 mmol/L (3.5-5.1); Sodium 132 mmol/L (136-145)
[2023-06-05] MEDS: Carvedilol 3.125 MG TAB PO SCH (07:55)
[2023-06-05] MEDS: Lisinopril 5 MG TAB PO SCH ×2 (07:55→20:00)
[2023-06-05] MEDS: Aspirin Chewable 81 MG TAB PO SCH (07:55)
[2023-06-05] MEDS ORDERED: Carvedilol 3.125 MG TAB PO SCH (10:15)
[2023-06-05] MEDS ORDERED: Morphine 4 MG/ML VIAL ONE (15:52)
[2023-06-05] MEDS ORDERED: Nitroglycerin 2% Ointment 1 INCH/1 GM Packet ONE (16:00)
[2023-06-05] MEDS: Carvedilol 6.25 MG TAB PO SCH (16:03)
[2023-06-05 17:06] LABS: Troponin I 0.025 ng/mL (< 0.028)
[2023-06-05] MEDS: Nicotine 14 MG PATCH TD SCH (18:25)
[2023-06-05] MEDS: Acetaminophen 325 MG TAB PO PRN (19:59)
[2023-06-05] MEDS: Atorvastatin Calcium 40 MG TAB PO SCH (19:59)
[2023-06-06 04:09] LABS: #Monocytes 0.7 thou/uL (0.11-0.59); Platelet Count 140 10x3/uL (130-400)
[2023-06-06 04:18] LABS: #Eosinphils 0.5 thou/uL (0.0-0.7); #Neutrophils 8.4 thou/uL (1.40-6.50); %Basophils 0.3 % (0.0-1.0); %Eosinophils 4.2 % (0.0-10.0); %Lymphocytes 9.9 % (21.0-51.0); %Monocytes 6.5 % (0.0-10.0); %Neutrophils 78.2 % (42.0-75.0); Hematocrit 36.6 % (42.0-52.0); Hemoglobin 12.1 g/dL (14.0-18.0); Mean Corpuscular HGB CONC 33.1 g/dL (32.0-36.0); Mean Corpuscular Volume 90.6 fl (78.0-98.0); Mean Platelet Volume 12.2 fL (7.4-10.4); RBC Distribution Width 14.6 % (11.5-14.5); Red Blood Cell (RBC) Count 4.04 mill/uL (4.70-6.10); White Blood Cell (WBC) Count 10.7 10x3/uL (4.8-10.8)
[2023-06-06] MEDS: Acetaminophen 325 MG TAB PO PRN (04:22)
[2023-06-06] MEDS: HYDROcodone/Acetaminophen 5/325 mg Tablet PO PRN ×3 (04:23→21:02)
[2023-06-06 04:25] LABS: Anion Gap 11 mmol/L (10-20); BUN (Urea Nitrogen) 12 mg/dL (8.4-25.7); Calc. Creatinine Clearance 120 mL/min (70-130); Calcium 8.1 mg/dL (7.8-10.44); Carbon Dioxide 17 mmol/L (22-29); Chloride 106 mmol/L (98-107); Estimated GFR 82; Glucose 192 mg/dL (70-105); Potassium 4.3 mmol/L (3.5-5.1); Sodium 130 mmol/L (136-145)
[2023-06-06 04:47] LABS: CellaVision Operator ID lab.abc; Platelet Adequacy Comment Platelets Normal; RBC Morphology Within Normal Limits
[2023-06-06] MEDS: CEFAZOLIN 2 GM in Sodium Chloride 0.9% 100 ML IVPB SCH ×3 (05:00→21:01)
[2023-06-06] MEDS: HumaLOG 300 UNITS/3 ML VIAL SC PRN (06:01)
[2023-06-06] MEDS: Lorazepam 2 MG/ML VIAL SLOW IVP PRN (06:11)
[2023-06-06] MEDS: Lisinopril 5 MG TAB PO SCH ×2 (09:28→21:02)
[2023-06-06] MEDS: Aspirin Chewable 81 MG TAB PO SCH (09:29)
[2023-06-06] MEDS: Carvedilol 6.25 MG TAB PO SCH ×2 (09:29→17:22)
[2023-06-06] MEDS ORDERED: Furosemide 40 MG/4 ML VIAL SLOW IVP SCH (10:15)
[2023-06-06] MEDS: Nicotine 14 MG PATCH TD SCH (17:22)
[2023-06-06] MEDS: Atorvastatin Calcium 40 MG TAB PO SCH (21:02)
[2023-06-07] MEDS: HYDROcodone/Acetaminophen 5/325 mg Tablet PO PRN ×4 (04:11→20:08)
[2023-06-07] MEDS: CEFAZOLIN 2 GM in Sodium Chloride 0.9% 100 ML IVPB SCH ×3 (05:47→20:56)
[2023-06-07] MEDS: HumaLOG 300 UNITS/3 ML VIAL SC PRN ×3 (06:12→17:38)
[2023-06-07 08:28] LABS: #Basophils 0.1 thou/uL (0.0-0.2); #Eosinphils 0.5 thou/uL (0.0-0.7); #Monocytes 0.8 thou/uL (0.11-0.59); #Neutrophils 8.2 thou/uL (1.40-6.50); %Basophils 0.5 % (0.0-1.0); %Eosinophils 4.7 % (0.0-10.0); %Lymphocytes 10.2 % (21.0-51.0); %Monocytes 7.2 % (0.0-10.0); %Neutrophils 76.3 % (42.0-75.0); Hematocrit 39.5 % (42.0-52.0); Hemoglobin 12.7 g/dL (14.0-18.0); Mean Corpuscular HGB CONC 32.2 g/dL (32.0-36.0); Mean Corpuscular Hemoglobin 29.4 pg (27.0-31.0); Mean Corpuscular Volume 91.4 fl (78.0-98.0); Mean Platelet Volume 11.4 fL (7.4-10.4); Platelet Count 175 10x3/uL (130-400); RBC Distribution Width 14.7 % (11.5-14.5); Red Blood Cell (RBC) Count 4.32 mill/uL (4.70-6.10); White Blood Cell (WBC) Count 10.7 10x3/uL (4.8-10.8)
[2023-06-07] MEDS: Aspirin Chewable 81 MG TAB PO SCH (08:41)
[2023-06-07] MEDS: Carvedilol 6.25 MG TAB PO SCH ×2 (08:41→17:37)
[2023-06-07] MEDS: Furosemide 40 MG/4 ML VIAL SLOW IVP SCH (08:42)
[2023-06-07] MEDS: Lisinopril 5 MG TAB PO SCH ×2 (08:42→20:05)
[2023-06-07 08:52] LABS: Anion Gap 10 mmol/L (10-20); BUN (Urea Nitrogen) 11 mg/dL (8.4-25.7); Calc. Creatinine Clearance 124 mL/min (70-130); Calcium 8.5 mg/dL (7.8-10.44); Carbon Dioxide 24 mmol/L (22-29); Chloride 105 mmol/L (98-107); Estimated GFR 85; Glucose 161 mg/dL (70-105); Magnesium 1.2 mg/dL (1.6-2.6); Potassium 4.2 mmol/L (3.5-5.1); Sodium 135 mmol/L (136-145)
[2023-06-07] MEDS ORDERED: Gabapentin 300 MG CAP PO SCH (11:00)
[2023-06-07] MEDS: Nicotine 14 MG PATCH TD SCH (17:38)
[2023-06-07] MEDS: Gabapentin 300 MG CAP PO SCH (20:04)
[2023-06-07] MEDS: Atorvastatin Calcium 40 MG TAB PO SCH (20:04)
[2023-06-08] MEDS: HYDROcodone/Acetaminophen 5/325 mg Tablet PO PRN ×5 (01:18→20:25)
[2023-06-08] MEDS: CEFAZOLIN 2 GM in Sodium Chloride 0.9% 100 ML IVPB SCH ×3 (05:00→22:43)
[2023-06-08] MEDS: HumaLOG 300 UNITS/3 ML VIAL SC PRN ×2 (05:38→16:49)
[2023-06-08] MEDS: Furosemide 40 MG/4 ML VIAL SLOW IVP SCH (08:20)
[2023-06-08] MEDS: Carvedilol 6.25 MG TAB PO SCH ×2 (08:21→16:48)
[2023-06-08] MEDS: Lisinopril 5 MG TAB PO SCH ×2 (08:21→20:25)
[2023-06-08] MEDS: Gabapentin 300 MG CAP PO SCH ×3 (08:21→20:24)
[2023-06-08] MEDS: Aspirin Chewable 81 MG TAB PO SCH (08:21)
[2023-06-08] MEDS ORDERED: Magnesium Sulfate In Water 4 GM in Premix Bag 1 BAG IVPB SCH (09:15)
[2023-06-08] MEDS: Nicotine 14 MG PATCH TD SCH (16:49)
[2023-06-08 16:57] LABS: Magnesium 1.7 mg/dL (1.6-2.6)
[2023-06-08] MEDS: Atorvastatin Calcium 40 MG TAB PO SCH (20:24)
[2023-06-09 00:53] LABS: Anion Gap 17 mmol/L (10-20); BUN (Urea Nitrogen) 14 mg/dL (8.4-25.7); Calc. Creatinine Clearance 119 mL/min (70-130); Calcium 8.4 mg/dL (7.8-10.44); Carbon Dioxide 18 mmol/L (22-29); Chloride 102 mmol/L (98-107); Estimated GFR 80; Glucose 206 mg/dL (70-105); Sodium 132 mmol/L (136-145)
[2023-06-09] MEDS: HYDROcodone/Acetaminophen 5/325 mg Tablet PO PRN ×5 (02:12→22:03)
[2023-06-09 04:42] LABS: #Basophils 0.1 thou/uL (0.0-0.2); #Eosinphils 0.5 thou/uL (0.0-0.7); #Monocytes 0.5 thou/uL (0.11-0.59); #Neutrophils 5.3 thou/uL (1.40-6.50); %Basophils 0.7 % (0.0-1.0); %Eosinophils 6.4 % (0.0-10.0); %Lymphocytes 15.1 % (21.0-51.0); %Monocytes 6.9 % (0.0-10.0); %Neutrophils 70.4 % (42.0-75.0); Hematocrit 37.5 % (42.0-52.0); Hemoglobin 11.9 g/dL (14.0-18.0); Mean Corpuscular HGB CONC 31.7 g/dL (32.0-36.0); Mean Corpuscular Hemoglobin 29.6 pg (27.0-31.0); Mean Corpuscular Volume 93.3 fl (78.0-98.0); Mean Platelet Volume 11.8 fL (7.4-10.4); Platelet Count 154 10x3/uL (130-400); RBC Distribution Width 14.7 % (11.5-14.5); Red Blood Cell (RBC) Count 4.02 mill/uL (4.70-6.10); White Blood Cell (WBC) Count 7.6 10x3/uL (4.8-10.8)
[2023-06-09] MEDS: CEFAZOLIN 2 GM in Sodium Chloride 0.9% 100 ML IVPB SCH ×3 (04:54→20:56)
[2023-06-09 05:17] LABS: Anion Gap 14 mmol/L (10-20); BUN (Urea Nitrogen) 15 mg/dL (8.4-25.7); Calc. Creatinine Clearance 117 mL/min (70-130); Calcium 8.7 mg/dL (7.8-10.44); Carbon Dioxide 19 mmol/L (22-29); Chloride 103 mmol/L (98-107); Estimated GFR 79; Glucose 195 mg/dL (70-105); Magnesium 1.5 mg/dL (1.6-2.6); Potassium 4.2 mmol/L (3.5-5.1); Sodium 132 mmol/L (136-145)
[2023-06-09] MEDS: Carvedilol 6.25 MG TAB PO SCH ×2 (08:23→17:12)
[2023-06-09] MEDS: Aspirin Chewable 81 MG TAB PO SCH (08:24)
[2023-06-09] MEDS: Gabapentin 300 MG CAP PO SCH ×3 (08:24→20:57)
[2023-06-09] MEDS: Lisinopril 5 MG TAB PO SCH (08:25)
[2023-06-09] MEDS: Furosemide 40 MG/4 ML VIAL SLOW IVP SCH (08:27)
[2023-06-09] MEDS ORDERED: Electrolyte Replacement Protocol 1 EACH FS SCH (09:00)
[2023-06-09] MEDS ORDERED: Magnesium Sulfate 4 GM in Sodium Chloride 0.9% 250 ML 250 ML IVPB SCH (09:00)
[2023-06-09] MEDS ORDERED: PROPOFOL 20 ML ONE (09:16)
[2023-06-09] MEDS ORDERED: Midazolam HCl 2 mg/2 ml Vial ONE (09:16)
[2023-06-09] MEDS ORDERED: Ketamine 50 MG/ML (10ML VIAL) ONE (09:16)
[2023-06-09] MEDS ORDERED: PHENYLEPHRINE-NS 100 MCG/ML 10 ML SYRINGE ONE (09:31)
[2023-06-09] MEDS ORDERED: Magnesium Sulfate In Water 4 GM in Premix Bag 1 BAG IVPB SCH (10:00)
[2023-06-09] MEDS: Nicotine 14 MG PATCH TD SCH (17:12)
[2023-06-09] MEDS: HumaLOG 300 UNITS/3 ML VIAL SC PRN (18:52)
[2023-06-09] MEDS: Atorvastatin Calcium 40 MG TAB PO SCH (20:57)
[2023-06-10] MEDS: HYDROcodone/Acetaminophen 5/325 mg Tablet PO PRN ×4 (02:04→19:59)
[2023-06-10 05:45] LABS: #Basophils 0.1 thou/uL (0.0-0.2); #Eosinphils 0.4 thou/uL (0.0-0.7); #Monocytes 0.4 thou/uL (0.11-0.59); #Neutrophils 5.4 thou/uL (1.40-6.50); %Basophils 0.8 % (0.0-1.0); %Eosinophils 4.9 % (0.0-10.0); %Lymphocytes 15.4 % (21.0-51.0); %Monocytes 5.8 % (0.0-10.0); %Neutrophils 72.7 % (42.0-75.0); Hematocrit 37.9 % (42.0-52.0); Hemoglobin 12.2 g/dL (14.0-18.0); Mean Corpuscular HGB CONC 32.2 g/dL (32.0-36.0); Mean Corpuscular Hemoglobin 29.8 pg (27.0-31.0); Mean Corpuscular Volume 92.4 fl (78.0-98.0); Mean Platelet Volume 11.6 fL (7.4-10.4); Platelet Count 178 10x3/uL (130-400); RBC Distribution Width 14.6 % (11.5-14.5); White Blood Cell (WBC) Count 7.4 10x3/uL (4.8-10.8)
[2023-06-10 06:11] LABS: Anion Gap 16 mmol/L (10-20); BUN (Urea Nitrogen) 15 mg/dL (8.4-25.7); Calc. Creatinine Clearance 107 mL/min (70-130); Calcium 8.8 mg/dL (7.8-10.44); Carbon Dioxide 19 mmol/L (22-29); Chloride 103 mmol/L (98-107); Estimated GFR 71; Glucose 254 mg/dL (70-105); Magnesium 1.7 mg/dL (1.6-2.6); Potassium 4.7 mmol/L (3.5-5.1); Sodium 133 mmol/L (136-145)
[2023-06-10] MEDS: CEFAZOLIN 2 GM in Sodium Chloride 0.9% 100 ML IVPB SCH ×3 (06:11→22:08)
[2023-06-10] MEDS ORDERED: Magnesium 2 GM/50 ML(in water) 2 GM in Premix Bag 1 BAG IVPB SCH (08:00)
[2023-06-10] MEDS: Spironolactone 25 MG TAB PO SCH (09:40)
[2023-06-10] MEDS: Gabapentin 300 MG CAP PO SCH ×3 (09:41→20:00)
[2023-06-10] MEDS: Carvedilol 6.25 MG TAB PO SCH ×2 (09:42→17:34)
[2023-06-10] MEDS: Aspirin Chewable 81 MG TAB PO SCH (09:42)
[2023-06-10] MEDS: Furosemide 40 MG/4 ML VIAL SLOW IVP SCH (09:42)
[2023-06-10] MEDS: HumaLOG 300 UNITS/3 ML VIAL SC PRN (17:32)
[2023-06-10] MEDS: Nicotine 14 MG PATCH TD SCH (17:32)
[2023-06-10] MEDS: Atorvastatin Calcium 40 MG TAB PO SCH (19:59)
[2023-06-10] MEDS: Sacubitril 24MG/Valsartan 26 MG TAB PO SCH (19:59)
[2023-06-11 05:39] LABS: Anion Gap 16 mmol/L (10-20); BUN (Urea Nitrogen) 15 mg/dL (8.4-25.7); Calc. Creatinine Clearance 105 mL/min (70-130); Carbon Dioxide 14 mmol/L (22-29); Chloride 106 mmol/L (98-107); Estimated GFR 69; Glucose 285 mg/dL (70-105); Potassium 4.9 mmol/L (3.5-5.1); Sodium 131 mmol/L (136-145)
[2023-06-11] MEDS: CEFAZOLIN 2 GM in Sodium Chloride 0.9% 100 ML IVPB SCH ×3 (06:03→20:43)
[2023-06-11] MEDS: HYDROcodone/Acetaminophen 5/325 mg Tablet PO PRN ×4 (06:04→20:44)
[2023-06-11] MEDS: HumaLOG 300 UNITS/3 ML VIAL SC PRN ×3 (06:09→17:03)
[2023-06-11 07:55] LABS: #Basophils 0.1 thou/uL (0.0-0.2); #Eosinphils 0.4 thou/uL (0.0-0.7); #Monocytes 0.5 thou/uL (0.11-0.59); #Neutrophils 5.6 thou/uL (1.40-6.50); %Basophils 0.7 % (0.0-1.0); %Eosinophils 4.7 % (0.0-10.0); %Lymphocytes 13.7 % (21.0-51.0); %Monocytes 6.7 % (0.0-10.0); %Neutrophils 73.8 % (42.0-75.0); Hematocrit 36.8 % (42.0-52.0); Hemoglobin 11.8 g/dL (14.0-18.0); Mean Corpuscular HGB CONC 32.1 g/dL (32.0-36.0); Mean Corpuscular Hemoglobin 29.4 pg (27.0-31.0); Mean Corpuscular Volume 91.5 fl (78.0-98.0); Mean Platelet Volume 11.3 fL (7.4-10.4); Platelet Count 148 10x3/uL (130-400); RBC Distribution Width 14.5 % (11.5-14.5); Red Blood Cell (RBC) Count 4.02 mill/uL (4.70-6.10); White Blood Cell (WBC) Count 7.5 10x3/uL (4.8-10.8)
[2023-06-11 09:01] LABS: CRP (Inflammatory) 1.74 mg/dL (= or < 0.5); Uric Acid 4.3 mg/dL (3.5-7.2)
[2023-06-11] MEDS: Sacubitril 24MG/Valsartan 26 MG TAB PO SCH ×2 (10:37→20:44)
[2023-06-11] MEDS: Lidocaine 4% Patch TD SCH (10:37)
[2023-06-11] MEDS: Carvedilol 6.25 MG TAB PO SCH ×2 (10:37→17:02)
[2023-06-11] MEDS: Gabapentin 300 MG CAP PO SCH ×3 (10:38→20:44)
[2023-06-11] MEDS: Spironolactone 25 MG TAB PO SCH (10:38)
[2023-06-11] MEDS: Aspirin Chewable 81 MG TAB PO SCH (10:39)
[2023-06-11] MEDS: Furosemide 40 MG/4 ML VIAL SLOW IVP SCH (10:44)
[2023-06-11] MEDS: Nicotine 14 MG PATCH TD SCH (17:01)
[2023-06-11] MEDS: Atorvastatin Calcium 40 MG TAB PO SCH (20:44)
[2023-06-11] MEDS: Transdermal Patch Removal TOP SCH (20:47)
[2023-06-12] MEDS: HYDROcodone/Acetaminophen 5/325 mg Tablet PO PRN ×4 (02:28→21:03)
[2023-06-12 04:53] LABS: Anion Gap 15 mmol/L (10-20); BUN (Urea Nitrogen) 16 mg/dL (8.4-25.7); Calc. Creatinine Clearance 133 mL/min (70-130); Calcium 8.9 mg/dL (7.8-10.44); Carbon Dioxide 22 mmol/L (22-29); Chloride 100 mmol/L (98-107); Estimated GFR 92; Glucose 205 mg/dL (70-105); Potassium 4.3 mmol/L (3.5-5.1); Sodium 133 mmol/L (136-145)
[2023-06-12] MEDS: CEFAZOLIN 2 GM in Sodium Chloride 0.9% 100 ML IVPB SCH ×3 (05:56→21:07)
[2023-06-12] MEDS: Furosemide 40 MG/4 ML VIAL SLOW IVP SCH (08:47)
[2023-06-12] MEDS: HumaLOG 300 UNITS/3 ML VIAL SC PRN ×3 (08:47→16:46)
[2023-06-12] MEDS: Sacubitril 24MG/Valsartan 26 MG TAB PO SCH (08:47)
[2023-06-12] MEDS: Lidocaine 4% Patch TD SCH (08:47)
[2023-06-12] MEDS: Gabapentin 300 MG CAP PO SCH ×3 (08:47→21:01)
[2023-06-12] MEDS: Carvedilol 6.25 MG TAB PO SCH ×2 (08:47→16:45)
[2023-06-12] MEDS: Apixaban 5 MG TAB PO SCH ×2 (08:48→21:01)
[2023-06-12] MEDS: Spironolactone 25 MG TAB PO SCH (08:49)
[2023-06-12] MEDS: Aspirin Chewable 81 MG TAB PO SCH (08:49)
[2023-06-12] MEDS: Nicotine 14 MG PATCH TD SCH (16:49)
[2023-06-12] MEDS: Sacubitril 49 MG/Valsartan 51 MG TABLET PO SCH (21:01)
[2023-06-12] MEDS: Atorvastatin Calcium 40 MG TAB PO SCH (21:01)
[2023-06-12] MEDS: Transdermal Patch Removal TOP SCH (21:14)
[2023-06-13] MEDS: HYDROcodone/Acetaminophen 5/325 mg Tablet PO PRN ×4 (05:28→21:10)
[2023-06-13] MEDS: CEFAZOLIN 2 GM in Sodium Chloride 0.9% 100 ML IVPB SCH ×3 (05:29→21:09)
[2023-06-13 05:34] LABS: Anion Gap 15 mmol/L (10-20); BUN (Urea Nitrogen) 18 mg/dL (8.4-25.7); Calc. Creatinine Clearance 113 mL/min (70-130); Carbon Dioxide 23 mmol/L (22-29); Chloride 100 mmol/L (98-107); Estimated GFR 75; Glucose 230 mg/dL (70-105); Potassium 4.5 mmol/L (3.5-5.1); Sodium 133 mmol/L (136-145)
[2023-06-13] MEDS: Gabapentin 300 MG CAP PO SCH ×3 (09:11→21:08)
[2023-06-13] MEDS: Aspirin Chewable 81 MG TAB PO SCH (09:11)
[2023-06-13] MEDS: Lidocaine 4% Patch TD SCH (09:11)
[2023-06-13] MEDS: Sacubitril 49 MG/Valsartan 51 MG TABLET PO SCH ×2 (09:11→21:09)
[2023-06-13] MEDS: Carvedilol 6.25 MG TAB PO SCH ×2 (09:12→17:16)
[2023-06-13] MEDS: Apixaban 5 MG TAB PO SCH ×2 (09:12→21:08)
[2023-06-13] MEDS: Spironolactone 25 MG TAB PO SCH (09:12)
[2023-06-13] MEDS: Furosemide 40 MG/4 ML VIAL SLOW IVP SCH (09:22)
[2023-06-13] MEDS: HumaLOG 300 UNITS/3 ML VIAL SC PRN ×2 (12:18→17:47)
[2023-06-13] MEDS: Nicotine 14 MG PATCH TD SCH (17:47)
[2023-06-13] MEDS: Atorvastatin Calcium 40 MG TAB PO SCH (21:08)
[2023-06-13] MEDS: Transdermal Patch Removal TOP SCH (21:09)
[2023-06-14] MEDS: HYDROcodone/Acetaminophen 5/325 mg Tablet PO PRN ×4 (02:08→20:53)
[2023-06-14] MEDS: CEFAZOLIN 2 GM in Sodium Chloride 0.9% 100 ML IVPB SCH ×3 (05:34→20:54)
[2023-06-14] MEDS: Carvedilol 6.25 MG TAB PO SCH ×2 (08:25→16:31)
[2023-06-14] MEDS: Gabapentin 300 MG CAP PO SCH ×3 (08:25→20:52)
[2023-06-14] MEDS: Sacubitril 49 MG/Valsartan 51 MG TABLET PO SCH ×2 (08:25→20:51)
[2023-06-14] MEDS: Spironolactone 25 MG TAB PO SCH (08:26)
[2023-06-14] MEDS: Aspirin Chewable 81 MG TAB PO SCH (08:26)
[2023-06-14] MEDS: Furosemide 40 MG/4 ML VIAL SLOW IVP SCH (08:26)
[2023-06-14] MEDS: Lidocaine 4% Patch TD SCH (08:26)
[2023-06-14] MEDS: Apixaban 5 MG TAB PO SCH ×2 (08:26→20:51)
[2023-06-14] MEDS ORDERED: HYDROmorphone 0.5 MG/0.5 ML SYRINGE SLOW IVP SCH (08:30)
[2023-06-14] MEDS: HumaLOG 300 UNITS/3 ML VIAL SC PRN ×2 (13:28→20:59)
[2023-06-14] MEDS: Nicotine 14 MG PATCH TD SCH (16:30)
[2023-06-14 17:10] LABS: #Eosinphils 0.3 thou/uL (0.0-0.7); #Monocytes 0.6 thou/uL (0.11-0.59); #Neutrophils 7.1 thou/uL (1.40-6.50); %Basophils 0.3 % (0.0-1.0); %Eosinophils 3.1 % (0.0-10.0); %Lymphocytes 11.9 % (21.0-51.0); %Monocytes 6.3 % (0.0-10.0); Hematocrit 50.3 % (42.0-52.0); Hemoglobin 16.2 g/dL (14.0-18.0); Mean Corpuscular HGB CONC 32.2 g/dL (32.0-36.0); Mean Corpuscular Hemoglobin 29.3 pg (27.0-31.0); Mean Platelet Volume 10.6 fL (7.4-10.4); Platelet Count 198 10x3/uL (130-400); RBC Distribution Width 14.1 % (11.5-14.5); Red Blood Cell (RBC) Count 5.53 mill/uL (4.70-6.10); White Blood Cell (WBC) Count 9.2 10x3/uL (4.8-10.8)
[2023-06-14 19:27] LABS: Albumin 3.4 g/dL (3.5-5.0)
[2023-06-14 19:28] LABS: Chloride 99 mmol/L (98-107); Potassium 4.1 mmol/L (3.5-5.1)
[2023-06-14 19:29] LABS: Sodium 132 mmol/L (136-145)
[2023-06-14 19:30] LABS: Globulin 3.4 g/dL (2.4-3.5); Glucose 220 mg/dL (70-105); Protein, Total 6.8 g/dL (6.0-8.3)
[2023-06-14 19:31] LABS: Anion Gap 15 mmol/L (10-20); Carbon Dioxide 22 mmol/L (22-29)
[2023-06-14 19:32] LABS: Bilirubin, Total 1.1 mg/dL (0.2-1.2)
[2023-06-14 19:33] LABS: Alkaline Phosphatase 78 U/L (40-110); Calc. Creatinine Clearance 100 mL/min (70-130); Estimated GFR 71
[2023-06-14 19:34] LABS: BUN (Urea Nitrogen) 21 mg/dL (8.4-25.7)
[2023-06-14 19:35] LABS: AST (SGOT) 15 U/L (5-34)
[2023-06-14 19:36] LABS: ALT (SGPT) Less than 7 U/L (8-55)
[2023-06-14 20:24] LABS: Lactic Acid 2.4 mmol/L (0.5-2.2)
[2023-06-14] MEDS: Atorvastatin Calcium 40 MG TAB PO SCH (20:52)
[2023-06-15 04:38] LABS: Anion Gap 12 mmol/L (10-20); BUN (Urea Nitrogen) 19 mg/dL (8.4-25.7); Calc. Creatinine Clearance 109 mL/min (70-130); Calcium 9.1 mg/dL (7.8-10.44); Carbon Dioxide 26 mmol/L (22-29); Chloride 101 mmol/L (98-107); Estimated GFR 79; Glucose 153 mg/dL (70-105); Potassium 4.2 mmol/L (3.5-5.1); Sodium 135 mmol/L (136-145)
[2023-06-15] MEDS: CEFAZOLIN 2 GM in Sodium Chloride 0.9% 100 ML IVPB SCH ×3 (06:32→21:36)
[2023-06-15] MEDS: Transdermal Patch Removal TOP SCH ×2 (06:41→20:45)
[2023-06-15] MEDS: Lidocaine 4% Patch TD SCH (10:36)
[2023-06-15] MEDS: Aspirin Chewable 81 MG TAB PO SCH (10:37)
[2023-06-15] MEDS: Sacubitril 49 MG/Valsartan 51 MG TABLET PO SCH ×2 (10:37→20:37)
[2023-06-15] MEDS: Furosemide 40 MG/4 ML VIAL SLOW IVP SCH (10:37)
[2023-06-15] MEDS: Apixaban 5 MG TAB PO SCH ×2 (10:37→20:37)
[2023-06-15] MEDS: Spironolactone 25 MG TAB PO SCH (10:38)
[2023-06-15] MEDS: Gabapentin 300 MG CAP PO SCH ×3 (10:38→20:37)
[2023-06-15] MEDS: Carvedilol 6.25 MG TAB PO SCH ×2 (10:38→17:44)
[2023-06-15 11:25] LABS: Lactic Acid 1.7 mmol/L (0.5-2.2)
[2023-06-15] MEDS: HumaLOG 300 UNITS/3 ML VIAL SC PRN ×2 (12:39→20:38)
[2023-06-15] MEDS: Nicotine 14 MG PATCH TD SCH (17:43)
[2023-06-15] MEDS: Atorvastatin Calcium 40 MG TAB PO SCH (20:37)
[2023-06-16] MEDS: CEFAZOLIN 2 GM in Sodium Chloride 0.9% 100 ML IVPB SCH ×3 (05:28→21:45)
[2023-06-16] MEDS: HumaLOG 300 UNITS/3 ML VIAL SC PRN ×3 (06:13→21:45)
[2023-06-16 07:11] LABS: Anion Gap 16 mmol/L (10-20); BUN (Urea Nitrogen) 19 mg/dL (8.4-25.7); Calc. Creatinine Clearance 92 mL/min (70-130); Calcium 9.3 mg/dL (7.8-10.44); Carbon Dioxide 25 mmol/L (22-29); Chloride 100 mmol/L (98-107); Estimated GFR 64; Glucose 184 mg/dL (70-105); Potassium 4.5 mmol/L (3.5-5.1); Sodium 136 mmol/L (136-145)
[2023-06-16] MEDS: Gabapentin 300 MG CAP PO SCH (10:06)
[2023-06-16] MEDS: Lidocaine 4% Patch TD SCH (10:06)
[2023-06-16] MEDS: Spironolactone 25 MG TAB PO SCH (10:07)
[2023-06-16] MEDS: Sacubitril 49 MG/Valsartan 51 MG TABLET PO SCH ×2 (10:07→20:40)
[2023-06-16] MEDS: Apixaban 5 MG TAB PO SCH ×2 (10:07→20:40)
[2023-06-16] MEDS: Aspirin Chewable 81 MG TAB PO SCH (10:08)
[2023-06-16] MEDS: Carvedilol 6.25 MG TAB PO SCH ×2 (10:08→16:53)
[2023-06-16] MEDS: Furosemide 40 MG TAB PO SCH (10:08)
[2023-06-16] MEDS: Gabapentin 400 MG CAP PO SCH ×2 (14:58→20:39)
[2023-06-16] MEDS: Nicotine 14 MG PATCH TD SCH (16:55)
[2023-06-16] MEDS: Atorvastatin Calcium 40 MG TAB PO SCH (20:40)
[2023-06-16] MEDS: Transdermal Patch Removal TOP SCH (20:45)
[2023-06-17] MEDS: CEFAZOLIN 2 GM in Sodium Chloride 0.9% 100 ML IVPB SCH ×2 (06:02→14:38)
[2023-06-17] MEDS: HumaLOG 300 UNITS/3 ML VIAL SC PRN ×2 (06:34→12:43)
[2023-06-17 06:56] LABS: Anion Gap 13 mmol/L (10-20); BUN (Urea Nitrogen) 20 mg/dL (8.4-25.7); Calc. Creatinine Clearance 100 mL/min (70-130); Calcium 8.7 mg/dL (7.8-10.44); Carbon Dioxide 25 mmol/L (22-29); Chloride 100 mmol/L (98-107); Estimated GFR 71; Glucose 165 mg/dL (70-105); Potassium 4.5 mmol/L (3.5-5.1); Sodium 133 mmol/L (136-145)
[2023-06-17] MEDS: Sacubitril 49 MG/Valsartan 51 MG TABLET PO SCH (10:06)
[2023-06-17] MEDS: Furosemide 40 MG TAB PO SCH (10:06)
[2023-06-17] MEDS: Lidocaine 4% Patch TD SCH (10:06)
[2023-06-17] MEDS: Carvedilol 6.25 MG TAB PO SCH (10:06)
[2023-06-17] MEDS: Spironolactone 25 MG TAB PO SCH (10:06)
[2023-06-17] MEDS: Apixaban 5 MG TAB PO SCH (10:07)
[2023-06-17] MEDS: Aspirin Chewable 81 MG TAB PO SCH (10:07)
[2023-06-17] MEDS: Gabapentin 400 MG CAP PO SCH ×2 (10:07→14:38)
[2023-06-17 12:38] VITALS: BP 115/60; TEMP 97.8
[2023-06-19] MEDS ORDERED: Apixaban 5 MG TAB PO SCH (09:00)
== END 2023-06-17 16:15 | disposition home or self-care (01) | DRG 291 ==
LOC: ERS 13:00 → 2NO 16:10 → IMCU/EMU 05-31 13:48 → 2NO 06-07 19:01
PROVIDERS: ADMIT Family Medicine; ATTEND Internal Medicine
PROC: 4A033R1 Measurement of Arterial Saturation, Peripheral, Percutaneous Approach (ICD-10-PCS; 2023-05-31)
PROC: B24BZZ4 Ultrasonography of Heart with Aorta, Transesophageal (ICD-10-PCS; principal; 2023-06-09)
PROC: 02HV33Z Insertion of Infusion Device into Superior Vena Cava, Percutaneous Approach (ICD-10-PCS; 2023-06-10)
PROC: B548ZZA Ultrasonography of Superior Vena Cava, Guidance (ICD-10-PCS; 2023-06-10)
DX: I13.0 Hypertensive heart and chronic kidney disease with heart failure and stage 1 through stage 4 chronic kidney disease, or unspecified chronic kidney disease (principal); A41.01 Sepsis due to Methicillin susceptible Staphylococcus aureus; I50.23 Acute on chronic systolic (congestive) heart failure; R65.20 Severe sepsis without septic shock; G92.8 Other toxic encephalopathy; E87.20 Acidosis, unspecified; N17.9 Acute kidney failure, unspecified; E87.21 Acute metabolic acidosis; E87.1 Hypo-osmolality and hyponatremia; I82.621 Acute embolism and thrombosis of deep veins of right upper extremity; Q24.0 Dextrocardia; I42.8 Other cardiomyopathies; E11.9 Type 2 diabetes mellitus without complications; J44.9 Chronic obstructive pulmonary disease, unspecified; F17.210 Nicotine dependence, cigarettes, uncomplicated; E87.5 Hyperkalemia; F15.10 Other stimulant abuse, uncomplicated; E11.42 Type 2 diabetes mellitus with diabetic polyneuropathy; B19.20 Unspecified viral hepatitis C without hepatic coma; E66.9 Obesity, unspecified; I45.81 Long QT syndrome; D64.9 Anemia, unspecified; E78.00 Pure hypercholesterolemia, unspecified; E11.22 Type 2 diabetes mellitus with diabetic chronic kidney disease; I25.10 Atherosclerotic heart disease of native coronary artery without angina pectoris; N18.30 Chronic kidney disease, stage 3 unspecified; R19.7 Diarrhea, unspecified; Z79.899 Other long term (current) drug therapy; Z79.84 Long term (current) use of oral hypoglycemic drugs; Z91.041 Radiographic dye allergy status; Z71.51 Drug abuse counseling and surveillance of drug abuser; Z68.31 Body mass index [BMI] 31.0-31.9, adult
CPT/HCPCS: 36415; 36416; 36569; 36600; 71045; 74176; 76705; 80048; 80053; 80074; 80076; 80306; 81001; 82248; 82390; 82550; 82570; 82805; 83605; 83630; 83735; 83880; 83930; 83935; 84100; 84300; 84484; 84550; 85025; 85652; 86015; 86038; 86140; 86225; 86780; 86850; 86900; 86901; 87040; 87077; 87149; 87186; 87324; 87389; 87449; 87497; 87505; 87522; 87529; 87798; 93005; 93010; 93306; 93312; 93458; 94660; 99152; 99153; C1725; C9113; J1170; J1815; J1940; J2060; J2250; J2270; J2272; J2543; J2704; J2765; J3370; J3411; J3475; J3490; Q9967

== ENCOUNTER 2023-09-09 20:22 | Observation (INO) | payer OTHER ==
[~2023-09-09 20:22] MED LIST changes: -Iopamidol 370 76% 100 ML VIAL ONE; +Iopamidol-370 76% 500 ML MDV (1 ML CHARGE) ONE
[2023-09-09 21:27] LABS: #Basophils 0.1 thou/uL (0.0-0.2); #Eosinphils 0.3 thou/uL (0.0-0.7); #Monocytes 0.6 thou/uL (0.11-0.59); #Neutrophils 5.4 thou/uL (1.40-6.50); %Basophils 0.8 % (0.0-1.0); %Eosinophils 3.2 % (0.0-10.0); %Lymphocytes 19.4 % (21.0-51.0); %Monocytes 7.6 % (0.0-10.0); Hematocrit 43.9 % (42.0-52.0); Hemoglobin 14.7 g/dL (14.0-18.0); Mean Corpuscular HGB CONC 33.5 g/dL (32.0-36.0); Mean Corpuscular Hemoglobin 31.3 pg (27.0-31.0); Mean Corpuscular Volume 93.4 fl (78.0-98.0); Mean Platelet Volume 11.9 fL (7.4-10.4); Platelet Count 172 10x3/uL (130-400); RBC Distribution Width 14.2 % (11.5-14.5); White Blood Cell (WBC) Count 7.9 10x3/uL (4.8-10.8)
[2023-09-09 21:28] LABS: SARS-CoV-2 NAA Rapid Test Not Detected (NotDetected)
[2023-09-09 21:52] LABS: ALT (SGPT) 13 U/L (8-55); AST (SGOT) 18 U/L (5-34); Albumin 4.1 g/dL (3.5-5.0); Alkaline Phosphatase 79 U/L (40-110); Anion Gap 14 mmol/L (10-20); BUN (Urea Nitrogen) 20 mg/dL (8.4-25.7); Bilirubin, Total 2.2 mg/dL (0.2-1.2); Calc. Creatinine Clearance 0 mL/min (70-130); Calcium 9.5 mg/dL (7.8-10.44); Carbon Dioxide 26 mmol/L (22-29); Chloride 100 mmol/L (98-107); Estimated GFR 53; Globulin 2.9 g/dL (2.4-3.5); Glucose 200 mg/dL (70-105); Magnesium 1.3 mg/dL (1.6-2.6); Potassium 3.3 mmol/L (3.5-5.1); Sodium 137 mmol/L (136-145)
[2023-09-09 21:55] LABS: Troponin I 0.179 ng/mL (< 0.028)
[2023-09-09] MEDS ORDERED: Aspirin Chewable 81 MG TAB ONE (22:13)
[2023-09-09] MEDS ORDERED: Electrolyte Replacement Protocol 1 EACH FS SCH (23:16)
[2023-09-09] MEDS ORDERED: Glucagon 1 MG/ML KIT IM PRN (23:16)
[2023-09-09] MEDS ORDERED: Dextrose 50% Abboject 50 ML SYRINGE SLOW IVP PRN (23:16)
[2023-09-09] MEDS ORDERED: Dextrose 5% in Water 1,000 ML IV PRN (23:16)
[2023-09-09] MEDS ORDERED: HumaLOG 300 UNITS/3 ML VIAL SC PRN ×2 (23:16)
[2023-09-09] MEDS ORDERED: Ipratropium/Albuterol 3 ML NEB NEB PRN (23:33)
[2023-09-09] MEDS ORDERED: Acetaminophen 325 MG TAB PO PRN (23:34)
[2023-09-09] MEDS ORDERED: Ondansetron PF 4 MG/2 ML Vial IVP PRN (23:34)
[2023-09-09] MEDS ORDERED: Ondansetron ODT 4 MG TAB PO PRN (23:34)
[2023-09-09] MEDS ORDERED: Furosemide 20 MG/2 ML VIAL ONE (23:44)
[2023-09-10 00:27] LABS: Troponin I 0.162 ng/mL (< 0.028)
[2023-09-10 01:33] VITALS: BMI 30.7
[2023-09-10] MEDS: Nicotine 21 MG PATCH TD PRN (01:46)
[2023-09-10] MEDS ORDERED: Potassium Chloride 20 MEQ TAB PO SCH ×2 (02:00→08:00)
[2023-09-10] MEDS ORDERED: Magnesium Sulfate In Water 4 GM in Premix 1 BAG IVPB SCH (02:00)
[2023-09-10 02:41] LABS: Amphetamine Detected (NotDetected); Barbiturates Screen Not Detected (NotDetected); Benzodiazepine Screen Not Detected (NotDetected); Cocaine Metabolite Screen Not Detected (NotDetected); Methadone Not Detected (NotDetected); Methamphetamine Detected (NotDetected); Opiate Screen Not Detected (NotDetected); Oxycodone Screen Not Detected (NotDetected); Phencyclidine (PCP) Not Detected (NotDetected); THC/Cannabinoid Screen Not Detected (NotDetected); Tricyclic Screen Not Detected (NotDetected)
[2023-09-10 04:54] LABS: #Basophils 0.1 thou/uL (0.0-0.2); #Eosinphils 0.3 thou/uL (0.0-0.7); #Monocytes 0.7 thou/uL (0.11-0.59); #Neutrophils 5.1 thou/uL (1.40-6.50); %Basophils 0.7 % (0.0-1.0); %Eosinophils 3.7 % (0.0-10.0); %Lymphocytes 25.3 % (21.0-51.0); %Neutrophils 62.1 % (42.0-75.0); Hematocrit 43.4 % (42.0-52.0); Mean Corpuscular HGB CONC 32.3 g/dL (32.0-36.0); Mean Corpuscular Hemoglobin 31.2 pg (27.0-31.0); Mean Platelet Volume 12.5 fL (7.4-10.4); Platelet Count 208 10x3/uL (130-400); RBC Distribution Width 14.4 % (11.5-14.5); Red Blood Cell (RBC) Count 4.49 mill/uL (4.70-6.10); White Blood Cell (WBC) Count 8.3 10x3/uL (4.8-10.8)
[2023-09-10 05:01] LABS: Mean Corpuscular Volume 96.7 fl (78.0-98.0)
[2023-09-10 05:11] LABS: Anion Gap 16 mmol/L (10-20); BUN (Urea Nitrogen) 23 mg/dL (8.4-25.7); Calc. Creatinine Clearance 73 mL/min (70-130); Calcium 9.4 mg/dL (7.8-10.44); Carbon Dioxide 25 mmol/L (22-29); Chloride 99 mmol/L (98-107); Estimated GFR 51; Glucose 149 mg/dL (70-105); Potassium 3.5 mmol/L (3.5-5.1); Sodium 136 mmol/L (136-145)
[2023-09-10 05:15] LABS: Troponin I 0.164 ng/mL (< 0.028)
[2023-09-10] MEDS ORDERED: Famotidine/PF 20 mg/2ml Vial SLOW IVP SCH (09:00)
[2023-09-10] MEDS ORDERED: Famotidine 20 MG TAB PO SCH (09:00)
[2023-09-10] MEDS: Carvedilol 6.25 MG TAB PO SCH ×2 (10:08→16:15)
[2023-09-10] MEDS: metFORMIN 500 MG TAB PO SCH ×2 (10:08→16:15)
[2023-09-10] MEDS: Spironolactone 25 MG TAB PO SCH (10:09)
[2023-09-10] MEDS: Apixaban 5 MG TAB PO SCH ×2 (10:10→21:12)
[2023-09-10] MEDS: Sacubitril 49 MG/Valsartan 51 MG TABLET PO SCH ×2 (10:10→21:12)
[2023-09-10] MEDS: Aspirin Chewable 81 MG TAB PO SCH (10:10)
[2023-09-10] MEDS: Gabapentin 400 MG CAP PO SCH ×3 (10:10→21:12)
[2023-09-10] MEDS: Furosemide 40 MG TAB PO SCH (10:10)
[2023-09-10] MEDS ORDERED: Atorvastatin Calcium 40 MG TAB PO SCH (21:00)
[2023-09-11] MEDS: Nicotine 21 MG PATCH TD PRN (05:27)
[2023-09-11] MEDS: Gabapentin 400 MG CAP PO SCH (08:36)
[2023-09-11] MEDS: Aspirin Chewable 81 MG TAB PO SCH (08:36)
[2023-09-11] MEDS: Sacubitril 49 MG/Valsartan 51 MG TABLET PO SCH (08:36)
[2023-09-11] MEDS: metFORMIN 500 MG TAB PO SCH (08:36)
[2023-09-11] MEDS: Furosemide 40 MG TAB PO SCH (08:37)
[2023-09-11] MEDS: Spironolactone 25 MG TAB PO SCH (08:37)
[2023-09-11] MEDS: Apixaban 5 MG TAB PO SCH (08:37)
[2023-09-11] MEDS ORDERED: Lisinopril 10 MG TAB PO SCH (09:00)
[2023-09-11 10:15] VITALS: TEMP 97.5
[2023-09-11 11:50] VITALS: BP 131/92
[2023-09-13] MEDS ORDERED: LISINOPRIL 10 MG TABLET PO SCH (09:00)
== END 2023-09-11 13:27 | disposition home or self-care (01) ==
LOC: ERS 20:22 → INTOOBSV 23:36 → 2NO 23:36
PROVIDERS: ADMIT Student in an Organized Health Care Education/Training Program; ATTEND Internal Medicine Critical Care Medicine
DX: I42.0 Dilated cardiomyopathy (principal); I13.0 Hypertensive heart and chronic kidney disease with heart failure and stage 1 through stage 4 chronic kidney disease, or unspecified chronic kidney disease; I50.23 Acute on chronic systolic (congestive) heart failure; N18.9 Chronic kidney disease, unspecified; J90 Pleural effusion, not elsewhere classified; E11.22 Type 2 diabetes mellitus with diabetic chronic kidney disease; I82.409 Acute embolism and thrombosis of unspecified deep veins of unspecified lower extremity; F15.10 Other stimulant abuse, uncomplicated; R79.89 Other specified abnormal findings of blood chemistry; J44.9 Chronic obstructive pulmonary disease, unspecified; F17.200 Nicotine dependence, unspecified, uncomplicated; Z79.84 Long term (current) use of oral hypoglycemic drugs; Z79.82 Long term (current) use of aspirin; Z79.01 Long term (current) use of anticoagulants; Z79.899 Other long term (current) drug therapy; Z91.041 Radiographic dye allergy status
CPT/HCPCS: 36415; 36416; 71045; 71275; 80048; 80053; 80306; 83735; 83880; 84484; 85025; 93005; 96372; 96374; 96375; G0378; J1650; J1815; J1940; J3475; Q9967

== ENCOUNTER 2023-09-21 05:09 | Inpatient (IN) | payer OTHER ==
[2023-09-21 05:56] LABS: #Basophils 0.1 thou/uL (0.0-0.2); #Eosinphils 0.4 thou/uL (0.0-0.7); #Monocytes 0.7 thou/uL (0.11-0.59); #Neutrophils 6.4 thou/uL (1.40-6.50); %Basophils 0.6 % (0.0-1.0); %Eosinophils 4.2 % (0.0-10.0); %Lymphocytes 19.7 % (21.0-51.0); %Monocytes 7.1 % (0.0-10.0); %Neutrophils 68.2 % (42.0-75.0); Hematocrit 50.2 % (42.0-52.0); Hemoglobin 16.6 g/dL (14.0-18.0); Mean Corpuscular HGB CONC 33.1 g/dL (32.0-36.0); Mean Corpuscular Hemoglobin 31.1 pg (27.0-31.0); Mean Corpuscular Volume 94.2 fl (78.0-98.0); Mean Platelet Volume 11.5 fL (7.4-10.4); Platelet Count 164 10x3/uL (130-400); RBC Distribution Width 13.2 % (11.5-14.5); Red Blood Cell (RBC) Count 5.33 mill/uL (4.70-6.10); White Blood Cell (WBC) Count 9.3 10x3/uL (4.8-10.8)
[2023-09-21 06:41] LABS: ALT (SGPT) 20 U/L (8-55); AST (SGOT) 28 U/L (5-34); Albumin 4.3 g/dL (3.5-5.0); Alkaline Phosphatase 65 U/L (40-110); Anion Gap 18 mmol/L (10-20); BUN (Urea Nitrogen) 27 mg/dL (8.4-25.7); Bilirubin, Total 0.8 mg/dL (0.2-1.2); Calc. Creatinine Clearance 0 mL/min (70-130); Calcium 9.9 mg/dL (7.8-10.44); Carbon Dioxide 26 mmol/L (22-29); Chloride 102 mmol/L (98-107); Estimated GFR 45; Globulin 3.2 g/dL (2.4-3.5); Glucose 119 mg/dL (70-105); Magnesium 2.3 mg/dL (1.6-2.6); Potassium 3.5 mmol/L (3.5-5.1); Protein, Total 7.5 g/dL (6.0-8.3); Sodium 142 mmol/L (136-145)
[2023-09-21 06:42] LABS: SARS-CoV-2 NAA Rapid Test Not Detected (NotDetected)
[2023-09-21 06:42] LABS: Troponin I 0.034 ng/mL (< 0.028)
[2023-09-21 06:57] LABS: Free T4 (Free Thyroxine) 1.1 ng/dL (0.70-1.48); Thyroid Stimulating Hormone 6.128 uIU/mL (0.35-4.94)
[2023-09-21] MEDS ORDERED: Furosemide 40 MG/4 ML VIAL ONE (07:27)
[2023-09-21] MEDS ORDERED: Acetaminophen 325 MG TAB PO PRN (09:02)
[2023-09-21] MEDS ORDERED: Dextrose 50% Abboject 50 ML SYRINGE SLOW IVP PRN (09:02)
[2023-09-21] MEDS ORDERED: Lorazepam 2 MG/ML VIAL IM PRN (09:02)
[2023-09-21] MEDS ORDERED: Glucagon 1 MG/ML KIT IM PRN (09:02)
[2023-09-21] MEDS ORDERED: HumaLOG 300 UNITS/3 ML VIAL SC PRN ×2 (09:02)
[2023-09-21] MEDS ORDERED: Dextrose 5% in Water 1,000 ML IV PRN (09:02)
[2023-09-21] MEDS ORDERED: Lorazepam 1 MG TAB PO PRN (09:02)
[2023-09-21] MEDS ORDERED: Metoclopramide HCl 10 MG/2 ML VIAL IVP PRN (09:11)
[2023-09-21] MEDS ORDERED: Electrolyte Replacement Protocol 1 EACH FS SCH (09:15)
[2023-09-21] MEDS ORDERED: Sodium Chloride 0.9% 500 ML IV SCH (09:30)
[2023-09-21] MEDS ORDERED: Nicotine 7 MG PATCH TD SCH (10:00)
[2023-09-21] MEDS ORDERED: Folic Acid 1 MG TAB PO SCH (10:15)
[2023-09-21] MEDS ORDERED: Multivit, Therapeutic 1 TAB PO SCH (10:15)
[2023-09-21 10:50] LABS: Bacteria/HPF None Seen HPF (None Seen); Bilirubin Negative (Negative); Blood, Urine Negative (Negative); Clarity Clear (Clear); Glucose, Urine (Dipstick) Normal (Negative); Ketone, Urine Negative (Negative); Leukocyte Negative Leu/uL (Negative); Nitrite Negative (Negative); Protein, Urine (Dipstick) Negative (Neg-Trace); RBC/HPF 0-3 HPF (0-3); Specific Gravity, Urine 1.005 (1.002-1.036); Squamous Epithelial None Seen HPF (0-3); Urobilinogen Normal mg/dL (Less than 2); WBC/HPF None Seen HPF (0-3); pH, Urine 6.5 (5.0-9.0)
[2023-09-21] MEDS ORDERED: Potassium Chloride 20 MEQ TAB PO SCH (11:00)
[2023-09-21] MEDS ORDERED: Folic Acid 1 MG TAB ONE (11:03)
[2023-09-21] MEDS ORDERED: Potassium Chloride 20 MEQ TAB ONE ×2 (11:03→11:05)
[2023-09-21] MEDS ORDERED: Multivit, Therapeutic 1 TAB ONE (11:04)
[2023-09-21] MEDS: Apixaban 5 MG TAB PO SCH ×2 (11:05→20:18)
[2023-09-21] MEDS ORDERED: Nicotine 14 MG PATCH ONE (11:08)
[2023-09-21] MEDS: Nicotine 14 MG PATCH TD SCH (11:52)
[2023-09-21 13:05] VITALS: BMI 30.7
[2023-09-21 14:36] LABS: Amphetamine Detected (NotDetected); Barbiturates Screen Not Detected (NotDetected); Benzodiazepine Screen Not Detected (NotDetected); Cocaine Metabolite Screen Not Detected (NotDetected); Methadone Not Detected (NotDetected); Methamphetamine Detected (NotDetected); Opiate Screen Not Detected (NotDetected); Oxycodone Screen Not Detected (NotDetected); Phencyclidine (PCP) Not Detected (NotDetected); THC/Cannabinoid Screen Not Detected (NotDetected); Tricyclic Screen Not Detected (NotDetected)
[2023-09-21] MEDS: Atorvastatin Calcium 40 MG TAB PO SCH (20:17)
[2023-09-21] MEDS: Carvedilol 3.125 MG TAB PO SCH (20:18)
[2023-09-21] MEDS: Carbamide Peroxide 6.5% Otic Drops 15 ml Bottle R EAR SCH (20:18)
[2023-09-21] MEDS: Gabapentin 100 MG CAP PO SCH (20:18)
[2023-09-21] MEDS ORDERED: Gabapentin 400 MG CAP PO SCH (21:00)
[2023-09-22 04:34] LABS: #Basophils 0.1 thou/uL (0.0-0.2); #Eosinphils 0.3 thou/uL (0.0-0.7); #Monocytes 0.8 thou/uL (0.11-0.59); #Neutrophils 6.2 thou/uL (1.40-6.50); %Basophils 0.7 % (0.0-1.0); %Eosinophils 3.6 % (0.0-10.0); %Lymphocytes 21.9 % (21.0-51.0); %Monocytes 8.1 % (0.0-10.0); %Neutrophils 65.5 % (42.0-75.0); Hematocrit 46.8 % (42.0-52.0); Hemoglobin 15.7 g/dL (14.0-18.0); Mean Corpuscular HGB CONC 33.5 g/dL (32.0-36.0); Mean Corpuscular Hemoglobin 30.9 pg (27.0-31.0); Mean Corpuscular Volume 92.1 fl (78.0-98.0); Mean Platelet Volume 12.7 fL (7.4-10.4); Platelet Count 143 10x3/uL (130-400); Red Blood Cell (RBC) Count 5.08 mill/uL (4.70-6.10); White Blood Cell (WBC) Count 9.5 10x3/uL (4.8-10.8)
[2023-09-22 05:13] LABS: Anion Gap 13 mmol/L (10-20); BUN (Urea Nitrogen) 30 mg/dL (8.4-25.7); Calc. Creatinine Clearance 70 mL/min (70-130); Calcium 9.3 mg/dL (7.8-10.44); Carbon Dioxide 25 mmol/L (22-29); Chloride 100 mmol/L (98-107); Estimated GFR 48; Glucose 172 mg/dL (70-105); Potassium 3.6 mmol/L (3.5-5.1); Sodium 134 mmol/L (136-145)
[2023-09-22] MEDS ORDERED: Lorazepam 1 MG TAB PO PRN (09:03)
[2023-09-22] MEDS: Aspirin Chewable 81 MG TAB PO SCH (10:10)
[2023-09-22] MEDS: Carvedilol 3.125 MG TAB PO SCH ×2 (10:11→22:57)
[2023-09-22] MEDS: Gabapentin 100 MG CAP PO SCH ×2 (10:11→22:57)
[2023-09-22] MEDS: Apixaban 5 MG TAB PO SCH ×2 (10:11→22:55)
[2023-09-22] MEDS: Folic Acid 1 MG TAB PO SCH (10:11)
[2023-09-22] MEDS: Multivit, Therapeutic 1 TAB PO SCH (10:11)
[2023-09-22] MEDS: Carbamide Peroxide 6.5% Otic Drops 15 ml Bottle R EAR SCH ×2 (10:12→22:58)
[2023-09-22] MEDS: Thiamine 100 MG TAB PO SCH (10:26)
[2023-09-22] MEDS: Nicotine 14 MG PATCH TD SCH (13:52)
[2023-09-22] MEDS: Atorvastatin Calcium 40 MG TAB PO SCH (22:55)
[2023-09-23 07:57] VITALS: BP 139/98; TEMP 98.6
[2023-09-23 08:53] LABS: Anion Gap 15 mmol/L (10-20); BUN (Urea Nitrogen) 26 mg/dL (8.4-25.7); Calc. Creatinine Clearance 94 mL/min (70-130); Calcium 9.7 mg/dL (7.8-10.44); Carbon Dioxide 22 mmol/L (22-29); Chloride 103 mmol/L (98-107); Estimated GFR 73; Glucose 124 mg/dL (70-105); Potassium 4.2 mmol/L (3.5-5.1); Sodium 136 mmol/L (136-145)
[2023-09-23] MEDS ORDERED: Lorazepam 1 MG TAB PO PRN (09:03)
[2023-09-23] MEDS: Multivit, Therapeutic 1 TAB PO SCH (09:19)
[2023-09-23] MEDS: Folic Acid 1 MG TAB PO SCH (09:19)
[2023-09-23] MEDS: Aspirin Chewable 81 MG TAB PO SCH (09:19)
[2023-09-23] MEDS: Gabapentin 100 MG CAP PO SCH (09:19)
[2023-09-23] MEDS: Thiamine 100 MG TAB PO SCH (09:19)
[2023-09-23] MEDS: Carbamide Peroxide 6.5% Otic Drops 15 ml Bottle R EAR SCH (09:20)
[2023-09-23] MEDS: Carvedilol 3.125 MG TAB PO SCH (09:20)
[2023-09-23] MEDS: Apixaban 5 MG TAB PO SCH (09:20)
[2023-09-23] MEDS ORDERED: Lisinopril 10 MG TAB PO SCH (10:15)
[2023-09-23] MEDS: Nicotine 14 MG PATCH TD SCH (12:59)
[2023-09-24] MEDS ORDERED: Lisinopril 10 MG TAB PO SCH (09:00)
[2023-09-24] MEDS ORDERED: Lorazepam 0.5 MG TAB PO PRN (09:03)
== END 2023-09-23 14:09 | disposition home or self-care (01) | DRG 291 ==
LOC: ERS 05:09 → ERHOLD 07:38 → 2NO 15:31
PROVIDERS: ADMIT Family Medicine; ATTEND Family Medicine
DX: I13.0 Hypertensive heart and chronic kidney disease with heart failure and stage 1 through stage 4 chronic kidney disease, or unspecified chronic kidney disease (principal); I50.23 Acute on chronic systolic (congestive) heart failure; N17.9 Acute kidney failure, unspecified; J43.9 Emphysema, unspecified; E78.00 Pure hypercholesterolemia, unspecified; F41.9 Anxiety disorder, unspecified; F17.210 Nicotine dependence, cigarettes, uncomplicated; E11.40 Type 2 diabetes mellitus with diabetic neuropathy, unspecified; K21.9 Gastro-esophageal reflux disease without esophagitis; N18.30 Chronic kidney disease, stage 3 unspecified; E78.5 Hyperlipidemia, unspecified; E11.22 Type 2 diabetes mellitus with diabetic chronic kidney disease; F10.10 Alcohol abuse, uncomplicated; F15.10 Other stimulant abuse, uncomplicated; H61.21 Impacted cerumen, right ear; I42.8 Other cardiomyopathies; I42.0 Dilated cardiomyopathy; Z91.199 Patient's noncompliance with other medical treatment and regimen due to unspecified reason; Z88.8 Allergy status to other drugs, medicaments and biological substances; Z86.711 Personal history of pulmonary embolism; Z11.52 Encounter for screening for COVID-19; Z91.013 Allergy to seafood
CPT/HCPCS: 36415; 36416; 71045; 80048; 80053; 80306; 81001; 83605; 83735; 83880; 84439; 84443; 84481; 84484; 85025; 93005; 93306; 93798; 96374; J1815; J1940; J7030

== ENCOUNTER 2023-10-22 17:18 | Inpatient (IN) | payer OTHER ==
[2023-10-22 19:14] LABS: #Eosinphils 0.3 thou/uL (0.0-0.7); #Monocytes 0.7 thou/uL (0.11-0.59); #Neutrophils 5.8 thou/uL (1.40-6.50); %Basophils 0.5 % (0.0-1.0); %Eosinophils 3.7 % (0.0-10.0); %Lymphocytes 17.6 % (21.0-51.0); %Monocytes 8.5 % (0.0-10.0); %Neutrophils 69.5 % (42.0-75.0); Hematocrit 42.1 % (42.0-52.0); Hemoglobin 14.1 g/dL (14.0-18.0); Mean Corpuscular HGB CONC 33.5 g/dL (32.0-36.0); Mean Corpuscular Hemoglobin 30.6 pg (27.0-31.0); Mean Corpuscular Volume 91.3 fl (78.0-98.0); Mean Platelet Volume 12.2 fL (7.4-10.4); Platelet Count 154 10x3/uL (130-400); RBC Distribution Width 14.1 % (11.5-14.5); Red Blood Cell (RBC) Count 4.61 mill/uL (4.70-6.10); White Blood Cell (WBC) Count 8.4 10x3/uL (4.8-10.8)
[2023-10-22 19:43] LABS: ALT (SGPT) 24 U/L (8-55); AST (SGOT) 40 U/L (5-34); Alkaline Phosphatase 70 U/L (40-110); Anion Gap 16 mmol/L (10-20); BUN (Urea Nitrogen) 34 mg/dL (8.4-25.7); Bilirubin, Total 1.2 mg/dL (0.2-1.2); Calc. Creatinine Clearance 0 mL/min (70-130); Calcium 8.7 mg/dL (7.8-10.44); Carbon Dioxide 24 mmol/L (22-29); Chloride 102 mmol/L (98-107); Estimated GFR 43; Glucose 110 mg/dL (70-105); Potassium 4.3 mmol/L (3.5-5.1); Sodium 138 mmol/L (136-145)
[2023-10-22 19:44] LABS: Troponin I 0.016 ng/mL (< 0.028)
[2023-10-22] MEDS ORDERED: Furosemide 40 MG (4 mL) VIAL ONE (20:18)
[2023-10-22] MEDS ORDERED: Ondansetron PF 4 MG/2 ML Vial IVP PRN (22:17)
[2023-10-22] MEDS ORDERED: Acetaminophen 650 MG Suppository PR PRN (22:17)
[2023-10-22] MEDS ORDERED: Ondansetron ODT 4 MG TAB PO PRN (22:17)
[2023-10-22] MEDS ORDERED: Acetaminophen 325 MG TAB PO PRN (22:17)
[2023-10-22] MEDS ORDERED: Electrolyte Replacement Protocol 1 EACH FS SCH (22:30)
[2023-10-22 23:10] LABS: Troponin I 0.011 ng/mL (< 0.028)
[2023-10-22] MEDS ORDERED: Glucagon 1 MG/ML KIT IM PRN (23:48)
[2023-10-22] MEDS ORDERED: Dextrose 5% in Water 1,000 ML IV PRN (23:48)
[2023-10-22] MEDS ORDERED: Dextrose 50% Abboject 50 ML SYRINGE SLOW IVP PRN (23:48)
[2023-10-22] MEDS ORDERED: Ipratropium/Albuterol 3 ML NEB NEB PRN (23:56)
[2023-10-23 00:40] VITALS: BMI 35.6
[2023-10-23 00:42] LABS: Anion Gap 20 mmol/L (10-20); BUN (Urea Nitrogen) 33 mg/dL (8.4-25.7); Calc. Creatinine Clearance 72 mL/min (70-130); Calcium 8.6 mg/dL (7.8-10.44); Carbon Dioxide 21 mmol/L (22-29); Chloride 103 mmol/L (98-107); Estimated GFR 42; Glucose 170 mg/dL (70-105); Magnesium 1.2 mg/dL (1.6-2.6); Potassium 3.3 mmol/L (3.5-5.1); Sodium 141 mmol/L (136-145)
[2023-10-23] MEDS ORDERED: Magnesium Sulfate In Water 4 GM in Premix 1 BAG IVPB SCH (01:45)
[2023-10-23 01:46] LABS: Amphetamine Detected (NotDetected); Barbiturates Screen Not Detected (NotDetected); Benzodiazepine Screen Not Detected (NotDetected); Cocaine Metabolite Screen Not Detected (NotDetected); Methadone Not Detected (NotDetected); Methamphetamine Detected (NotDetected); Opiate Screen Not Detected (NotDetected); Oxycodone Screen Not Detected (NotDetected); Phencyclidine (PCP) Not Detected (NotDetected); THC/Cannabinoid Screen Not Detected (NotDetected); Tricyclic Screen Not Detected (NotDetected)
[2023-10-23] MEDS ORDERED: Potassium Chloride 20 MEQ TAB PO SCH (02:00)
[2023-10-23 02:34] LABS: #Eosinphils 0.3 thou/uL (0.0-0.7); #Monocytes 0.7 thou/uL (0.11-0.59); #Neutrophils 5.1 thou/uL (1.40-6.50); %Basophils 0.5 % (0.0-1.0); %Lymphocytes 17.3 % (21.0-51.0); %Monocytes 8.9 % (0.0-10.0); Hematocrit 42.7 % (42.0-52.0); Hemoglobin 13.6 g/dL (14.0-18.0); Mean Corpuscular HGB CONC 31.9 g/dL (32.0-36.0); Mean Corpuscular Hemoglobin 29.9 pg (27.0-31.0); Mean Corpuscular Volume 93.8 fl (78.0-98.0); Mean Platelet Volume 11.9 fL (7.4-10.4); Platelet Count 161 10x3/uL (130-400); RBC Distribution Width 14.3 % (11.5-14.5); Red Blood Cell (RBC) Count 4.55 mill/uL (4.70-6.10); White Blood Cell (WBC) Count 7.3 10x3/uL (4.8-10.8)
[2023-10-23 03:02] LABS: Troponin I Less than 0.010 ng/mL (< 0.028)
[2023-10-23 03:08] LABS: Anion Gap 16 mmol/L (10-20); BUN (Urea Nitrogen) 29 mg/dL (8.4-25.7); Calc. Creatinine Clearance 86 mL/min (70-130); Calcium 8.5 mg/dL (7.8-10.44); Carbon Dioxide 21 mmol/L (22-29); Chloride 104 mmol/L (98-107); Estimated GFR 52; Glucose 139 mg/dL (70-105); Magnesium 1.2 mg/dL (1.6-2.6); Potassium 3.3 mmol/L (3.5-5.1); Sodium 138 mmol/L (136-145)
[2023-10-23] MEDS: Furosemide 40 MG (4 mL) VIAL SLOW IVP SCH ×2 (04:49→14:28)
[2023-10-23] MEDS: HumaLOG 300 UNITS/3 ML VIAL SC PRN ×2 (06:04→22:14)
[2023-10-23] MEDS ORDERED: FLU VACC QS2023-24(6MOS UP)/PF 60 MCG/0.5 ML SYRINGE IM ONE (09:00)
[2023-10-23] MEDS: Carvedilol 6.25 MG TAB PO SCH ×2 (09:50→22:02)
[2023-10-23] MEDS: Apixaban 5 MG TAB PO SCH ×2 (09:50→22:01)
[2023-10-23] MEDS: Gabapentin 400 MG CAP PO SCH ×3 (09:50→22:02)
[2023-10-23] MEDS: Lisinopril 10 MG TAB PO SCH (09:50)
[2023-10-23] MEDS ORDERED: predniSONE 20 MG TAB PO SCH (13:15)
[2023-10-23] MEDS ORDERED: Furosemide 100 MG (10 mL) VIAL SLOW IVP SCH (16:30)
[2023-10-23] MEDS: Atorvastatin Calcium 40 MG TAB PO SCH (22:01)
[2023-10-24] MEDS: Furosemide 40 MG (4 mL) VIAL SLOW IVP SCH ×2 (05:58→15:11)
[2023-10-24 06:54] LABS: Anion Gap 15 mmol/L (10-20); BUN (Urea Nitrogen) 24 mg/dL (8.4-25.7); Calc. Creatinine Clearance 99 mL/min (70-130); Calcium 8.8 mg/dL (7.8-10.44); Carbon Dioxide 25 mmol/L (22-29); Chloride 101 mmol/L (98-107); Estimated GFR 64; Glucose 160 mg/dL (70-105); Magnesium 1.3 mg/dL (1.6-2.6); Potassium 3.5 mmol/L (3.5-5.1); Sodium 137 mmol/L (136-145)
[2023-10-24] MEDS ORDERED: Magnesium Sulfate In Water 4 GM in Premix 1 BAG IVPB SCH (08:00)
[2023-10-24] MEDS ORDERED: Potassium Chloride 20 MEQ TAB PO SCH (08:00)
[2023-10-24] MEDS: Spironolactone 25 MG TAB PO SCH (08:16)
[2023-10-24] MEDS: Carvedilol 6.25 MG TAB PO SCH ×2 (08:17→21:41)
[2023-10-24] MEDS: Gabapentin 400 MG CAP PO SCH ×3 (08:17→21:40)
[2023-10-24] MEDS: Apixaban 5 MG TAB PO SCH ×2 (08:17→21:40)
[2023-10-24] MEDS: predniSONE 20 MG TAB PO SCH (08:17)
[2023-10-24] MEDS: Lisinopril 10 MG TAB PO SCH (08:18)
[2023-10-24] MEDS ORDERED: Loratadine 10 MG TAB PO SCH (12:45)
[2023-10-24] MEDS: HumaLOG 300 UNITS/3 ML VIAL SC PRN ×2 (17:29→22:14)
[2023-10-24] MEDS: Atorvastatin Calcium 40 MG TAB PO SCH (21:40)
[2023-10-25 04:52] LABS: Anion Gap 16 mmol/L (10-20); BUN (Urea Nitrogen) 23 mg/dL (8.4-25.7); Calc. Creatinine Clearance 81 mL/min (70-130); Calcium 9.2 mg/dL (7.8-10.44); Carbon Dioxide 28 mmol/L (22-29); Chloride 95 mmol/L (98-107); Estimated GFR 50; Glucose 171 mg/dL (70-105); Magnesium 1.9 mg/dL (1.6-2.6); Potassium 3.9 mmol/L (3.5-5.1); Sodium 135 mmol/L (136-145)
[2023-10-25] MEDS: Furosemide 40 MG (4 mL) VIAL SLOW IVP SCH ×2 (05:29→13:10)
[2023-10-25] MEDS: Gabapentin 400 MG CAP PO SCH ×3 (07:32→20:57)
[2023-10-25] MEDS: predniSONE 20 MG TAB PO SCH (07:32)
[2023-10-25] MEDS: Apixaban 5 MG TAB PO SCH ×2 (07:33→20:57)
[2023-10-25] MEDS: Lisinopril 10 MG TAB PO SCH (07:33)
[2023-10-25] MEDS: Carvedilol 6.25 MG TAB PO SCH ×2 (07:33→20:57)
[2023-10-25] MEDS: Spironolactone 25 MG TAB PO SCH (07:33)
[2023-10-25] MEDS: HumaLOG 300 UNITS/3 ML VIAL SC PRN ×2 (11:34→16:56)
[2023-10-25] MEDS ORDERED: Loratadine 10 MG TAB PO SCH (13:00)
[2023-10-25] MEDS: Atorvastatin Calcium 40 MG TAB PO SCH (20:57)
[2023-10-26] MEDS: Furosemide 40 MG (4 mL) VIAL SLOW IVP SCH ×2 (05:26→14:45)
[2023-10-26] MEDS: HumaLOG 300 UNITS/3 ML VIAL SC PRN ×2 (05:41→12:01)
[2023-10-26 05:59] LABS: Anion Gap 16 mmol/L (10-20); BUN (Urea Nitrogen) 28 mg/dL (8.4-25.7); Calc. Creatinine Clearance 84 mL/min (70-130); Calcium 8.9 mg/dL (7.8-10.44); Carbon Dioxide 26 mmol/L (22-29); Chloride 95 mmol/L (98-107); Estimated GFR 55; Glucose 195 mg/dL (70-105); Potassium 3.4 mmol/L (3.5-5.1); Sodium 134 mmol/L (136-145)
[2023-10-26] MEDS: Gabapentin 400 MG CAP PO SCH ×2 (09:21→14:44)
[2023-10-26] MEDS: Spironolactone 25 MG TAB PO SCH (09:22)
[2023-10-26] MEDS: Lisinopril 10 MG TAB PO SCH (09:23)
[2023-10-26] MEDS: predniSONE 20 MG TAB PO SCH (09:23)
[2023-10-26] MEDS: Apixaban 5 MG TAB PO SCH (09:24)
[2023-10-26] MEDS: Carvedilol 6.25 MG TAB PO SCH (09:26)
[2023-10-26 12:38] VITALS: BP 145/86; TEMP 98.3
== END 2023-10-26 14:47 | disposition home or self-care (01) | DRG 291 ==
LOC: ERS 17:18 → 2NO 21:37 → OBSVTOIN 10-23 17:06
PROVIDERS: ADMIT Student in an Organized Health Care Education/Training Program; ATTEND Internal Medicine
DX: I13.0 Hypertensive heart and chronic kidney disease with heart failure and stage 1 through stage 4 chronic kidney disease, or unspecified chronic kidney disease (principal); I50.23 Acute on chronic systolic (congestive) heart failure; E87.1 Hypo-osmolality and hyponatremia; N17.9 Acute kidney failure, unspecified; J44.1 Chronic obstructive pulmonary disease with (acute) exacerbation; I42.9 Cardiomyopathy, unspecified; J43.9 Emphysema, unspecified; E78.00 Pure hypercholesterolemia, unspecified; F41.9 Anxiety disorder, unspecified; F17.210 Nicotine dependence, cigarettes, uncomplicated; E11.22 Type 2 diabetes mellitus with diabetic chronic kidney disease; N18.30 Chronic kidney disease, stage 3 unspecified; E83.42 Hypomagnesemia; F10.10 Alcohol abuse, uncomplicated; Z88.8 Allergy status to other drugs, medicaments and biological substances; Z79.01 Long term (current) use of anticoagulants; Z86.711 Personal history of pulmonary embolism; Z79.84 Long term (current) use of oral hypoglycemic drugs; Z79.899 Other long term (current) drug therapy
CPT/HCPCS: 36415; 36416; 71045; 80048; 80053; 80306; 83735; 83880; 84484; 85025; 93005; 93798; 96374; 96375; 96376; G0378; J1815; J1940; J3475; J7512

== ENCOUNTER 2023-10-30 17:42 | Emergency (ER) | payer OTHER ==
[2023-10-30 19:12] LABS: Troponin I 0.035 ng/mL (< 0.028)
[2023-10-30 19:17] LABS: Albumin 4.7 g/dL (3.5-5.0)
[2023-10-30 19:18] LABS: Chloride 98 mmol/L (98-107)
[2023-10-30 19:19] LABS: Glucose 139 mg/dL (70-105)
[2023-10-30 19:20] LABS: Globulin 3.3 g/dL (2.4-3.5)
[2023-10-30 19:21] LABS: Carbon Dioxide 18 mmol/L (22-29)
[2023-10-30 19:22] LABS: Alkaline Phosphatase 79 U/L (40-110)
[2023-10-30 19:24] LABS: BUN (Urea Nitrogen) 27 mg/dL (8.4-25.7)
[2023-10-30 19:25] LABS: AST (SGOT) 50 U/L (5-34)
[2023-10-30 19:26] LABS: ALT (SGPT) 44 U/L (8-55)
[2023-10-30 19:32] LABS: Calc. Creatinine Clearance 0 mL/min (70-130); Calcium 10.1 mg/dL (7.8-10.44); Estimated GFR 67; Sodium 135 mmol/L (136-145)
[2023-10-30 19:35] LABS: Anion Gap 24 mmol/L (10-20)
[2023-10-30] MEDS ORDERED: Ketorolac Tromethamine 30 MG (1 mL) VIAL ONE (19:58)
[2023-10-30] MEDS ORDERED: Furosemide 40 MG (4 mL) VIAL ONE (19:59)
[2023-10-30 21:56] LABS: #Eosinphils 0.1 thou/uL (0.0-0.7); #Monocytes 1.2 thou/uL (0.11-0.59); #Neutrophils 7.8 thou/uL (1.40-6.50); %Basophils 0.4 % (0.0-1.0); %Eosinophils 1.3 % (0.0-10.0); %Lymphocytes 16.8 % (21.0-51.0); %Monocytes 11.2 % (0.0-10.0); Hematocrit 43.4 % (42.0-52.0); Hemoglobin 14.5 g/dL (14.0-18.0); Mean Corpuscular HGB CONC 33.4 g/dL (32.0-36.0); Mean Corpuscular Hemoglobin 30.3 pg (27.0-31.0); Mean Corpuscular Volume 90.8 fl (78.0-98.0); Mean Platelet Volume 11.9 fL (7.4-10.4); Platelet Count 152 10x3/uL (130-400); RBC Distribution Width 14.3 % (11.5-14.5); Red Blood Cell (RBC) Count 4.78 mill/uL (4.70-6.10); White Blood Cell (WBC) Count 11.1 10x3/uL (4.8-10.8)
== END 2023-10-30 23:07 | disposition home or self-care (01) ==
LOC: ERS 17:42
DX: I11.0 Hypertensive heart disease with heart failure (principal); I50.9 Heart failure, unspecified; F15.10 Other stimulant abuse, uncomplicated; E11.9 Type 2 diabetes mellitus without complications; J43.9 Emphysema, unspecified; E78.00 Pure hypercholesterolemia, unspecified; F17.210 Nicotine dependence, cigarettes, uncomplicated; Z79.84 Long term (current) use of oral hypoglycemic drugs; Z79.899 Other long term (current) drug therapy
CPT/HCPCS: 36415; 71045; 80053; 83880; 84484; 85025; 93005; 96374; 96375; J1885; J1940

== ENCOUNTER 2023-11-21 19:29 | Inpatient (IN) | payer OTHER, SELFPAY ==
[2023-11-21 20:05] LABS: #Eosinphils 0.2 thou/uL (0.0-0.7); #Monocytes 0.7 thou/uL (0.11-0.59); #Neutrophils 5.4 thou/uL (1.40-6.50); %Basophils 0.5 % (0.0-1.0); %Lymphocytes 17.3 % (21.0-51.0); %Monocytes 9.1 % (0.0-10.0); %Neutrophils 69.8 % (42.0-75.0); Hematocrit 47.5 % (42.0-52.0); Hemoglobin 15.2 g/dL (14.0-18.0); Mean Corpuscular Hemoglobin 29.9 pg (27.0-31.0); Mean Corpuscular Volume 93.5 fl (78.0-98.0); Platelet Count 127 10x3/uL (130-400); RBC Distribution Width 16.4 % (11.5-14.5); Red Blood Cell (RBC) Count 5.08 mill/uL (4.70-6.10); White Blood Cell (WBC) Count 7.7 10x3/uL (4.8-10.8)
[2023-11-21 20:27] LABS: ALT (SGPT) 19 U/L (8-55); AST (SGOT) 28 U/L (5-34); Albumin 4.4 g/dL (3.5-5.0); Alkaline Phosphatase 78 U/L (40-110); Anion Gap 19 mmol/L (10-20); BUN (Urea Nitrogen) 23 mg/dL (8.4-25.7); Bilirubin, Total 1.9 mg/dL (0.2-1.2); Calc. Creatinine Clearance 0 mL/min (70-130); Calcium 8.7 mg/dL (7.8-10.44); Carbon Dioxide 20 mmol/L (22-29); Chloride 106 mmol/L (98-107); Estimated GFR 59; Globulin 2.6 g/dL (2.4-3.5); Glucose 136 mg/dL (70-105); Magnesium 1.1 mg/dL (1.6-2.6); Sodium 141 mmol/L (136-145)
[2023-11-21 20:37] LABS: Troponin I Less than 0.010 ng/mL (< 0.028)
[2023-11-21] MEDS ORDERED: Furosemide 40 MG (4 mL) VIAL ONE (23:56)
[2023-11-21] MEDS ORDERED: Magnesium 2 GM/50 ML BAG (IN WATER) ONE (23:56)
[2023-11-22] MEDS ORDERED: Glucagon 1 MG/ML KIT IM PRN (01:27)
[2023-11-22] MEDS ORDERED: Dextrose 5% in Water 1,000 ML IV PRN (01:27)
[2023-11-22] MEDS ORDERED: HumaLOG 300 UNITS/3 ML VIAL SC PRN (01:27)
[2023-11-22] MEDS ORDERED: Ondansetron ODT 4 MG TAB PO PRN (01:27)
[2023-11-22] MEDS ORDERED: Acetaminophen 650 MG Suppository PR PRN (01:27)
[2023-11-22] MEDS ORDERED: Acetaminophen 325 MG TAB PO PRN (01:27)
[2023-11-22] MEDS ORDERED: Ondansetron PF 4 MG/2 ML Vial IVP PRN (01:27)
[2023-11-22] MEDS ORDERED: Dextrose 50% Abboject 50 ML SYRINGE SLOW IVP PRN (01:27)
[2023-11-22] MEDS ORDERED: Electrolyte Replacement Protocol 1 EACH FS PRN (01:45)
[2023-11-22] MEDS ORDERED: Ipratropium/Albuterol 3 ML NEB NEB PRN (01:59)
[2023-11-22] MEDS: Ipratropium/Albuterol 3 ML NEB NEB SCH (02:21)
[2023-11-22 02:32] LABS: Troponin I Less than 0.010 ng/mL (< 0.028)
[2023-11-22] MEDS ORDERED: Magnesium 2 GM/50 ML BAG (IN WATER) ONE (03:36)
[2023-11-22] MEDS: Magnesium 2 GM/50 ML(in water) 2 GM in Premix 1 BAG IVPB SCH ×2 (03:45→15:33)
[2023-11-22] MEDS ORDERED: Furosemide 40 MG (4 mL) VIAL ONE ×2 (06:18→15:17)
[2023-11-22] MEDS: Furosemide 40 MG (4 mL) VIAL SLOW IVP SCH (06:57)
[2023-11-22] MEDS ORDERED: Enoxaparin 40 MG (0.4 mL) SYRINGE SC SCH (09:00)
[2023-11-22] MEDS ORDERED: Carvedilol 6.25 MG TAB ONE (10:13)
[2023-11-22] MEDS ORDERED: Apixaban 5 MG TAB ONE (10:13)
[2023-11-22 10:47] LABS: #Eosinphils 0.3 thou/uL (0.0-0.7); #Monocytes 0.7 thou/uL (0.11-0.59); #Neutrophils 5.2 thou/uL (1.40-6.50); %Basophils 0.4 % (0.0-1.0); %Eosinophils 3.6 % (0.0-10.0); %Lymphocytes 16.4 % (21.0-51.0); %Monocytes 8.8 % (0.0-10.0); %Neutrophils 70.7 % (42.0-75.0); Hematocrit 45.3 % (42.0-52.0); Hemoglobin 14.3 g/dL (14.0-18.0); Mean Corpuscular HGB CONC 31.6 g/dL (32.0-36.0); Mean Corpuscular Hemoglobin 30.1 pg (27.0-31.0); Mean Corpuscular Volume 95.4 fl (78.0-98.0); Mean Platelet Volume 12.3 fL (7.4-10.4); Platelet Count 138 10x3/uL (130-400); RBC Distribution Width 16.7 % (11.5-14.5); Red Blood Cell (RBC) Count 4.75 mill/uL (4.70-6.10); White Blood Cell (WBC) Count 7.4 10x3/uL (4.8-10.8)
[2023-11-22 11:12] LABS: Anion Gap 18 mmol/L (10-20); BUN (Urea Nitrogen) 22 mg/dL (8.4-25.7); Calc. Creatinine Clearance 95 mL/min (70-130); Calcium 8.7 mg/dL (7.8-10.44); Carbon Dioxide 22 mmol/L (22-29); Chloride 102 mmol/L (98-107); Estimated GFR 72; Glucose 121 mg/dL (70-105); Magnesium 1.6 mg/dL (1.6-2.6); Potassium 3.9 mmol/L (3.5-5.1); Sodium 138 mmol/L (136-145)
[2023-11-22] MEDS: Apixaban 5 MG TAB PO SCH (12:23)
[2023-11-22] MEDS: Carvedilol 6.25 MG TAB PO SCH (12:23)
[2023-11-22] MEDS ORDERED: Gabapentin 400 MG CAP ONE (15:18)
[2023-11-22] MEDS: Gabapentin 400 MG CAP PO SCH (15:48)
[2023-11-22] MEDS: FLU VACC QS2023-24(6MOS UP)/PF 60 MCG/0.5 ML SYRINGE IM ONE (16:23)
[2023-11-22 16:37] VITALS: BMI 33.5
[2023-11-22] MEDS: Mometasone 200 MCG/Formoterol 5 MCG 120 PUFF INHALER INH SCH (19:23)
[2023-11-22] MEDS: Atorvastatin Calcium 40 MG TAB PO SCH (20:57)
[2023-11-22 23:39] LABS: Amphetamine Detected (NotDetected); Barbiturates Screen Not Detected (NotDetected); Benzodiazepine Screen Not Detected (NotDetected); Cocaine Metabolite Screen Not Detected (NotDetected); Methadone Not Detected (NotDetected); Methamphetamine Detected (NotDetected); Opiate Screen Detected (NotDetected); Oxycodone Screen Not Detected (NotDetected); Phencyclidine (PCP) Not Detected (NotDetected); THC/Cannabinoid Screen Not Detected (NotDetected); Tricyclic Screen Not Detected (NotDetected)
[2023-11-23 07:22] LABS: Anion Gap 14 mmol/L (10-20); BUN (Urea Nitrogen) 23 mg/dL (8.4-25.7); Calc. Creatinine Clearance 99 mL/min (70-130); Calcium 8.7 mg/dL (7.8-10.44); Carbon Dioxide 22 mmol/L (22-29); Chloride 103 mmol/L (98-107); Estimated GFR 67; Glucose 152 mg/dL (70-105); Potassium 4.2 mmol/L (3.5-5.1); Sodium 135 mmol/L (136-145)
[2023-11-23] MEDS: Lisinopril 10 MG TAB PO SCH (09:15)
[2023-11-23] MEDS: Spironolactone 25 MG TAB PO SCH (09:15)
[2023-11-23] MEDS: Gabapentin 100 MG CAP PO SCH (15:01)
[2023-11-24 05:45] LABS: Anion Gap 12 mmol/L (10-20); BUN (Urea Nitrogen) 22 mg/dL (8.4-25.7); Calc. Creatinine Clearance 92 mL/min (70-130); Calcium 8.7 mg/dL (7.8-10.44); Carbon Dioxide 27 mmol/L (22-29); Chloride 98 mmol/L (98-107); Estimated GFR 62; Glucose 158 mg/dL (70-105); Magnesium 1.2 mg/dL (1.6-2.6); Potassium 3.3 mmol/L (3.5-5.1); Sodium 134 mmol/L (136-145)
[2023-11-24] MEDS: HumaLOG 300 UNITS/3 ML VIAL SC PRN (05:59)
[2023-11-24] MEDS: Potassium Chloride 20 MEQ TAB PO SCH ×2 (09:21→16:45)
[2023-11-24] MEDS: Magnesium Sulfate In Water 4 GM in Premix 1 BAG IVPB SCH (09:22)
[2023-11-24 12:54] LABS: Anion Gap 12 mmol/L (10-20); BUN (Urea Nitrogen) 20 mg/dL (8.4-25.7); Calc. Creatinine Clearance 96 mL/min (70-130); Calcium 8.9 mg/dL (7.8-10.44); Carbon Dioxide 28 mmol/L (22-29); Chloride 98 mmol/L (98-107); Estimated GFR 65; Glucose 227 mg/dL (70-105); Magnesium 1.9 mg/dL (1.6-2.6); Potassium 3.3 mmol/L (3.5-5.1); Sodium 135 mmol/L (136-145)
[2023-11-24 16:10] VITALS: BP 160/90; TEMP 98.4
[2023-11-24] MEDS: Magnesium Oxide 400 MG TAB PO SCH (16:45)
== END 2023-11-24 18:53 | disposition home or self-care (01) | DRG 917 ==
LOC: ERS 19:29 → ERHOLD 11-22 00:56 → 2NO 11-22 01:40
PROVIDERS: ADMIT Student in an Organized Health Care Education/Training Program; ATTEND Internal Medicine
DX: T43.621A Poisoning by amphetamines, accidental (unintentional), initial encounter (principal); I50.23 Acute on chronic systolic (congestive) heart failure; Q89.3 Situs inversus; I42.8 Other cardiomyopathies; F15.10 Other stimulant abuse, uncomplicated; N18.2 Chronic kidney disease, stage 2 (mild); E11.22 Type 2 diabetes mellitus with diabetic chronic kidney disease; J44.9 Chronic obstructive pulmonary disease, unspecified; F17.210 Nicotine dependence, cigarettes, uncomplicated; E83.42 Hypomagnesemia; E11.40 Type 2 diabetes mellitus with diabetic neuropathy, unspecified; I12.9 Hypertensive chronic kidney disease with stage 1 through stage 4 chronic kidney disease, or unspecified chronic kidney disease; K21.9 Gastro-esophageal reflux disease without esophagitis; E87.6 Hypokalemia; Z79.899 Other long term (current) drug therapy; Z79.84 Long term (current) use of oral hypoglycemic drugs; Z79.01 Long term (current) use of anticoagulants; Z91.041 Radiographic dye allergy status
CPT/HCPCS: 36415; 36416; 71045; 80048; 80053; 80306; 83735; 83880; 84484; 85025; 93005; 93798; 94640; 96365; 96375; J1940; J3475; J7620

== ENCOUNTER 2024-01-05 07:11 | Emergency (ER) | payer OTHER ==
[2024-01-05] MEDS ORDERED: Furosemide 40 MG (4 mL) VIAL ONE (08:07)
[2024-01-05 08:14] LABS: %Eosinophils 5.8 % (0.0-10.0); %Lymphocytes 14.5 % (21.0-51.0); %Monocytes 8.8 % (0.0-10.0); %Neutrophils 70.1 % (42.0-75.0); Hematocrit 38.8 % (42.0-52.0); Hemoglobin 12.6 g/dL (14.0-18.0); Mean Corpuscular HGB CONC 32.5 g/dL (32.0-36.0); Mean Corpuscular Hemoglobin 29.9 pg (27.0-31.0); Mean Corpuscular Volume 92.2 fL (78.0-98.0); Platelet Count 131 10x3/uL (130-400); RBC Distribution Width 18.7 % (11.5-14.5); Red Blood Cell (RBC) Count 4.21 mill/uL (4.70-6.10)
[2024-01-05 08:15] LABS: #Basophils 0.04 10x3/uL (0.0-0.2); %Basophils 0.5 % (0.0-1.0)
[2024-01-05 08:28] LABS: Troponin I Less than 0.010 ng/mL (< 0.028)
[2024-01-05 08:32] LABS: ALT (SGPT) 15 U/L (8-55); AST (SGOT) 20 U/L (5-34); Albumin 4.1 g/dL (3.5-5.0); Alkaline Phosphatase 79 U/L (40-110); Anion Gap 16 mmol/L (10-20); BUN (Urea Nitrogen) 31 mg/dL (8.4-25.7); Bilirubin, Total 1.5 mg/dL (0.2-1.2); Calc. Creatinine Clearance 0 mL/min (70-130); Calcium 9.6 mg/dL (7.8-10.44); Carbon Dioxide 26 mmol/L (22-29); Chloride 100 mmol/L (98-107); Estimated GFR 43; Globulin 2.5 g/dL (2.4-3.5); Glucose 159 mg/dL (70-105); Protein, Total 6.6 g/dL (6.0-8.3); Sodium 138 mmol/L (136-145)
== END 2024-01-05 09:31 | disposition home or self-care (01) ==
LOC: ERS 07:11
DX: R60.9 Edema, unspecified (principal); I13.0 Hypertensive heart and chronic kidney disease with heart failure and stage 1 through stage 4 chronic kidney disease, or unspecified chronic kidney disease; E11.22 Type 2 diabetes mellitus with diabetic chronic kidney disease; N18.9 Chronic kidney disease, unspecified; I50.9 Heart failure, unspecified; J44.9 Chronic obstructive pulmonary disease, unspecified; F17.210 Nicotine dependence, cigarettes, uncomplicated; Z86.711 Personal history of pulmonary embolism; Z79.01 Long term (current) use of anticoagulants; Z79.899 Other long term (current) drug therapy; Z79.84 Long term (current) use of oral hypoglycemic drugs
CPT/HCPCS: 36415; 71046; 80053; 83880; 84484; 85025; 93005; 94760; 96374; J1940